=== PATIENT | female | born 1945 | race Caucasian/White ===

== ENCOUNTER 2019-01-13 07:49 | Inpatient (IN) | payer MEDICARE, BC ==
--- NOTE | 2019-01-10 20:54 | HP ---
PREOPERATIVE HISTORY AND PHYSICAL: DATE OF ADMISSION/SURGERY: 01/13/19 ATTENDING SURGEON: Dr. Martha Subramanian.* (DICTATED BY NASREEN TOUSSAINT) PROCEDURE: Right total shoulder reverse, subpectoral biceps tenodesis. CHIEF COMPLAINT: Right shoulder pain. HISTORY OF PRESENT ILLNESS: Tiesha is a 73-year-old female, who presents to the clinic for right shoulder pain due to glenohumeral joint osteoarthritis and rotator cuff arthropathy. She has failed conservative measures and therefore agreed to undergo a right total shoulder reverse, subpectoral biceps tenodesis with Dr. Subramanian on 01/13/19. PAST MEDICAL HISTORY: Hypertension, asthma, high cholesterol, osteoarthritis, thyroid issues, Jtauj-Qhyfnwlnz-Kkppq, superficial blood clots of the right leg. She denies history of DVT or PE. 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 The patient denies prior complications with anesthesia. MEDICATIONS: 1. Protonix 40 mg 1 by mouth every day. 2. Synthroid 137 mcg 1 by mouth daily. 3. Calcium with vitamin D 1 by mouth twice a day. 4. Tylenol 8 Hour 1 by mouth every 6 hours as needed. 5. CoQ10 100 mg 1 by mouth 3 times a week. 6. Crestor 20 mg 1 by mouth every day. 7. Cymbalta 60 mg 1 by mouth every day. 8. Aspirin 81 mg 1 by mouth every day. 9. Meloxicam 7.5 mg 1 by mouth twice daily as needed. 10. Dulera 100/5 mcg per ACT 2 puffs by mouth twice a day. ALLERGIES: No known drug allergies. FAMILY HISTORY: Positive for diabetes, cancer, and RA, and a daughter with a history of DVT from . SOCIAL HISTORY: She lives with her daughter. She is retired. She denies tobacco or alcohol consumption. She is right-hand dominant. REVIEW OF SYSTEMS: A 14-point review of systems was reviewed with the patient. Positive for current complaint, otherwise negative. Denies history of DVT or PE , bleeding disorders, fever or chills. Denies chest pain or shortness of breath. PHYSICAL EXAMINATION GENERAL: A 73-year-old well-developed, well-nourished female, in no acute distress. VITAL SIGNS: Height 63, weight 180, pulse 77, blood pressure 126/74, temperature 98.6, BMI 31.9. HEENT: Normocephalic, atraumatic. PERRLA. Throat clear. NECK: Supple. PULMONARY: Lungs are clear to auscultation bilaterally. No wheezing, rhonchi, or rales. CARDIO: Regular rate and rhythm. S1, S2. No murmurs, gallops, or rubs. No edema. ABDOMEN: Positive bowel sounds. Soft, nontender. NEURO: Alert and oriented x3. Cranial nerves grossly intact. MUSCULOSKELETAL: Right upper extremity: Skin is intact. Forward flexion to 150, abduction to 90, external rotation to 40, internal rotation to the lateral hip. Full range of motion of the elbow, wrist, and hand. A +4/5 strength to rotator cuff testing with pain. A +2 radial pulse. Sensation intact to light touch distally. DIAGNOSTIC STUDIES: Arthrogram and CT revealed extravasation of fluid indicative of a moderate to large sized rotator cuff tear. IMPRESSION: Right shoulder osteoarthritis and rotator cuff tear. PLAN: The patient is scheduled to undergo a right total shoulder reverse, subpectoral biceps tenodesis with Dr. Subramanian on 01/13/19 pending primary care clearance. She will follow up 10 to 14 days postop for followup and suture removal. Percocet will be used for postop pain management. NASREEN TOUSSAINT [id number]/[facility] #: [id number] [facility]
[~2019-01-13 07:49] MED LIST: Buffered Lidocaine 1% SYRIN* 1 ML/SYRINGE INTRADERM ONE; Lactated Ringers 1000 ML Bag* 1,000 ML IV SCH
--- OUTSIDE RECORDS SUMMARY | 2019-01-13 07:53 | XMS REPORT | Continuity of Care Document ---
:1945 External Reference #:[id number] Author Name Merry Olivier Care Team Providers Name Role Phone Kelly Gipson MD Primary Care Physician Unavailable Payers Date Identification Numbers Payment Provider Subscriber Policy Number: [id number] Medicare Tita Rojo PayID: [id number] [address] [place] [address] Policy Number: [id number] [facility] Tita Rojo PayID: [id number] [address] [address] [place] [address] Advance Directives Description No Information Available Problems Date Description Provider Status Onset: 09/29/2018 Localized, primary osteoarthritis of the Martha Subramanian MD Active shoulder region Onset: 09/29/2018 Strain of muscle(s) and tendon(s) of the Martha Subramanian MD Active rotator cuff of right shoulder, subsequent encounter Onset: 11/10/2018 Presence of other cardiac implants and Martha Subramanian MD Active grafts Family History Date Family Member(s) Observation Comments General Diabetes General Cancer General Stroke Social History Type Date Description Comments Sex Unknown Lives With Daughter Occupation Retired Tobacco Use Start: Unknown Never Smoked Cigarettes Smoking Status Reviewed: 01/05/19 Never Smoked Cigarettes ETOH Use Denies alcohol use Tobacco Use Start: Unknown Patient has never smoked Recreational Drug Use Never Used Drugs Exercise Type/Frequency Exercises sporadically active around the house Allergies, Adverse Reactions, Alerts Description No Known Drug Allergies Medications Medication Date Status Form Strength Qnty SIG Indications Ordering Provider Protonix Active Tablets DR 40mg 1 by Unknown 000 mouth every day Synthroid 0 Active Tablets 137mcg 1 by Unknown 000 mouth every day Calcium 600 + Active Tablets 600-200mg-U 1 by Unknown D 000 nit mouth twice a day Tylenol 8 0 Active Tablets ER 650mg one every Unknown Hour 000 6 hours Arthritis as needed Pain for pains Coq10 Active Capsules 100mg take 1 by Unknown 000 mouth 3 x week Crestor 0 Active Tablets 20mg 1 by Unknown 000 mouth every day Cymbalta Active Caps DR 60mg 1 by Unknown 000 Part mouth every day Aspirin Low Active Chewtabs 81mg take 1 Unknown Dose 000 chew tab by mouth every day for heart disease Jocelyne Aspirin Active Tablets 325mg take 1 Unknown 000 tab twice a day x 14 days Meloxicam Active Tablets 7.5mg take one Unknown 000 tab twice daily as needed for pain, avoid other nsaids Dulera Active Aerosol 100-5mcg/Ac inhale Unknown 000 t two puffs by mouth twice a day Medications Administered in Office Medication Date Status Form Strength Qnty SIG Indications Ordering Provider Triamcinolone 09/29/ Administered Injection Zaneb (Kenalog) 2017 MD Marilynn Immunizations Description No Information Available Vital Signs Date Vital Result Comment 01/05/2019 11:44am Height 63 inches 5'3" Weight 180.00 lb Heart Rate 77 /min BP Systolic 126 mmHg BP Diastolic 74 mmHg Body Temperature 98.6 F Pain Level 4 BMI (Body Mass Index) 31.9 kg/m2 11/24/2018 10:05am Height 63 inches 5'3" Weight 184.00 lb BP Systolic 124 mmHg BP Diastolic 72 mmHg Respiratory Rate 20 /min Pain Level 3 BMI (Body Mass Index) 32.6 kg/m2 11/11/2018 10:25am Height 63 inches 5'3" Weight 184.00 lb Heart Rate 76 /min BP Systolic Sitting 120 mmHg Lue reg cuff BP Diastolic Sitting 80 mmHg Lue reg cuff Respiratory Rate 18 /min O2 % BldC Oximetry 96 % BMI (Body Mass Index) 32.6 kg/m2 11/10/2018 9:50am Height 63 inches 5'3" Weight 184.00 lb BP Systolic 116 mmHg BP Diastolic 68 mmHg Respiratory Rate 20 /min Pain Level 3 BMI (Body Mass Index) 32.6 kg/m2 10/07/2018 10:10am Height 63 inches 5'3" Weight 182.00 lb w/o shoes Heart Rate 68 /min reg BP Systolic 152 mmHg LA sitting reg cuff BP Diastolic 84 mmHg LA sitting reg cuff BP Systolic Sitting 142 mmHg Ra reg cuff BP Diastolic Sitting 82 mmHg Ra reg cuff BP Systolic Standing 126 mmHg LA reg cuff BP Diastolic Standing 72 mmHg LA reg cuff Respiratory Rate 17 /min O2 % BldC Oximetry 95 % BMI (Body Mass Index) 32.2 kg/m2 09/29/2018 8:18am Height 63 inches 5'3" Weight 184.00 lb Heart Rate 77 /min Body Temperature 98.0 F Pain Level 5 O2 % BldC Oximetry 97 % BMI (Body Mass Index) 32.6 kg/m2 Results Test Date Facility Test Result H/L Range Note Laboratory test 11/03/2018 [facility] Surgical SEE RESULT [address] Pathology BELOW [place], [place] [id number] [phone] 1 SEE RESULT BELOW Name: TITA ROJO : [address]: Richard Rios MD Acct: [id number] Unit: [id number] AGE: 73 Location: [facility] Re11/03/18 SEX: F Status: REG REF SPEC: [id number] ESTELITA: 11/03/180848 SUBM DR: Richard Rios MD REQ: [id number] RECD: 11/03/18 STATUS: SOUT _ ORDERED: LEVEL 1 FINAL DIAGNOSIS Event monitor, removal: Foreign body (event monitor) (gross diagnosis) PRE-OPERATIVE DIAGNOSIS Presence of other cardiac implants and grafts. GROSS DESCRIPTION The specimen is received fresh with no source identified and a requisition labeled, Event Monitor, and consists of a 4.5 x 0.7 x 0.4 cm [employer] medical billing associate. The following inscription is identified: [employer] LINQ SN [id number] 41. Per established hospital medical staff protocol, no tissue is submitted. Gross only. Signed by and Reported on: Luz Gregorio MD 11/04/18 1052 END OF REPORT DEPARTMENT OF PATHOLOGY, [address] [place] [address] Jim Anderson M.D. Director [facility] # [id number] Procedures Date Code Description Status 11/03/2018 88948 Removal, Subcutaneous Caridac Rhythm Monitor Completed 10/07/2018 24104 EKG Tracing & Interpretation Completed 09/29/2018 31189 Inject/Drain Joint/Bursa Major W/O US Completed Encounters Type Date Location Provider Dx Diagnosis Office Visit 11/24/2018 [facility] Martha Subramanian MD M19.011 Primary 9:45a [facility] osteoarthritis, right shoulder S46.011D Strain of musc/tend the rotator cuff of right shoulder, subs Office Visit 11/11/2018 10:45a [facility] Richard D. Z95.818 Presence of Of Duke Rios M.D. other cardiac implants and grafts Z48.812 Encntr for surgical aftcr following surgery on the circ sys Office Visit 11/10/2018 [facility]opedic Martha Subramanian M19.011 Primary 9:45a Services Of osteoarthritis, C.M.A. right shoulder Z95.818 Presence of other cardiac implants and grafts S46.011D Strain of musc/tend the rotator cuff of right shoulder, subs M25.511 Pain in right shoulder Office Visit 10/07/2018 10:00a [facility] Richard D. Z95.818 Presence of Of Duke Rios M.D. other cardiac implants and grafts R00.2 Palpitations Office Visit 09/29/2018 [facility] Martha Subramanian M19.011 Primary 8:00a Services Of osteoarthritis, C.M.A. right shoulder S46.011D Strain of musc/tend the rotator cuff of right shoulder, subs M75.41 Impingement syndrome of right shoulder Plan of Treatment Future Appointment(s):01/26/2019 9:15 am - Martha Subramanian MD at [facility] ..A.01/13/2019 9:30 am - Theresa Lai PA-C at [facility].01/13/2019 9:30 am - Martha Subramanian MD at [facility].01/05/2019 - Martha Subramanian, MDM19.011 Primary osteoarthritis, right shoulderNew Xrays:CT Extremity Upper Right Wo, Ordered: 01/05/19Follow up: Follow up: 10-14 days post opS46.011D Strain of muscle(s) and tendon(s) of the rotator cuff of rig
--- OUTSIDE RECORDS SUMMARY | 2019-01-13 07:53 | XMS REPORT | Continuity of Care Document ---
:1945 External Reference #:[id number] Author Name Theresa Lai PA-C Address [address], [place] [address] Care Team Providers Name Role Phone Kelly Gipson MD Primary Care Physician Unavailable Payers Date Identification Numbers Payment Provider Subscriber Policy Number: [id number] Medicare Tiesha Espinosa PayID: [id number] [address] [place] [address] Policy Number: [id number] [facility] Tiesha Espinosa PayID: [id number] [address] [address] [place] [address] Advance Directives Description No Information Available Problems [...] Form Strength Qnty SIG Indications Ordering Provider Bactrim DS Active Tablets 800-160mg 6tabs take 1 by Martha Subramanian MD twice daily x 3 [address] Table[address] 40mg 1 by Unknown 000 mouth every day Synthroid 0 Active Tablets 137mcg 1 by Unknown 000 mouth every day Calcium 600 + Active Tablets 600-200mg- 1 by Unknown D 000 Unit mouth twice a day Tylenol 8 Active Tablets ER 650mg one every Unknown Hour 000 6 hours Arthritis as needed Pain for pains Coq10 Active Capsules 100mg take 1 by Unknown 000 mouth 3 x week Crestor Active Tablets 20mg 1 by Unknown 000 [...] pain, avoid other nsaids Dulera Active Aerosol 100-5mcg/A inhale Unknown 000 ct two puffs by mouth twice a day Medications Administered in Office Medication Date Status Form Strength Qnty SIG Indications Ordering Provider Triamcinolone 09/29/ Administered Injection Dylanb (Kenalog) 2017 MD Marilynn Immunizations Description No [...] Date Facility Test Result H/L Range Note CBC Auto Diff 01/05/2019 [facility] White Blood 10.6 10^3/uL N 3.5-10.[address] [place] [address] [phone] Red Blood Count 4.52 10^6/uL N 3.70-4.87 Hemoglobin 13.9 g/dL N 12.0-16.0 Hematocrit 43 % High 33-41 Mean Corpuscular Volume 94 fL N 80-97 Mean Corpuscular Hemoglobin 31 pg N 27-31 Mean Corpuscular HGB Conc 33 g/dL N 31-36 Red Cell Distribution Width 16 % High 10.5-15 Platelet Count 294 10^3/uL N 150-450 Mean Platelet Volume 8.8 fL N 7.4-10.4 Abs Neutrophils 5.4 10^3/uL N 1.5-7.7 Abs Lymphocytes 3.7 10^3/uL N 1.0-4.8 Abs Monocytes 0.9 10^3/uL High 0-0.8 Abs Eosinophils 0.6 10^3/uL N 0-0.6 Abs Basophils 0.1 10^3/uL N 0-0.2 Abs Nucleated RBC 0 10^3/uL Granulocyte % 50.7 % Lymphocyte % 34.7 % Monocyte % 8.7 % Eosinophil % 5.2 % Basophil % 0.7 % Nucleated Red Blood Cells % 0.1 Inr/Protime 01/05/2019 [facility] Inr 0.88 N 0.77-1.02 [place] [address] [phone] Laboratory test 01/05/2019 [facility] Partial 28.2 seconds N 26.0-36.3 finding [address] [facility] [place] [address] PTT [phone] Urinalysis 01/05/2019 [facility] Urine [place] [address] [phone] Urine Appearance Cloudy Urine Specific [place] 1.013 N 1.010-1.030 Urine pH 6.0 N 5-9 Urine Urobilinogen Negative Negative Urine Ketones Negative Negative Urine Protein Negative Negative Urine Leukocytes Trace Abnormal Negative Urine Blood 1+ Abnormal Negative Urine Nitrite Positive Abnormal Negative Urine Bilirubin Negative Negative Urine Glucose Negative Negative Urine White Blood Cell 2+(11-20/hpf) Abnormal Absent Urine Red Blood Cell Trace(0-2/hpf) Absent Urine Bacteria 1+ Abnormal Absent Type & Screen 01/05/2019 [facility] Patient [place] [address] [phone] Antibody Screen NEGATIVE Basic Metabolic Panel 01/05/2019 [facility] Sodium 138 mmol/L N 135-145 [facility] [place] [address] [phone] Potassium 4.2 mmol/L N 3.5-5.0 Chloride 104 mmol/L N 101-111 Co2 Carbon Dioxide 26 mmol/L N 22-32 Anion Gap 8 mmol/L N 2-11 Glucose 94 mg/dL N 70-100 Blood Urea Nitrogen 26 mg/dL High 6-24 Creatinine 0.77 mg/dL N 0.51-0.95 BUN/Creatinine Ratio 33.8 High 8-20 Calcium 9.7 mg/dL N 8.6-10.3 Egfr Non- 73.5 >60 Egfr 88.9 >60 1 Laboratory test 01/05/2019 [facility] Free T4 (Free 1.33 High 0.61-1.12 finding [facility] Thyroxine) ng/[place] [address] [phone] TSH (Thyroid Stim Horm) 0.22 mcIU/mL Low 0.34-5.60 Urine Culture And 01/05/2019 [facility] Urine Culture SEE RESULT [address] [place] [address] [phone] Laboratory test 11/03/2018 [facility] Surgical SEE RESULT [address] [place] [address] [phone] 1 Because ethnic data is not always readily available, this report includes an eGFR for both -Americans and non- Americans. The National Kidney Disease Education Program (NKDEP) does not endorse the use of the MDRD equation for patients that are not between the ages of 18 and 70, are , have extremes of body size, muscle mass, or nutritional status, or are non- or non-. According to the National Kidney Foundation, irrespective of diagnosis, the stage of the disease is based on the level of kidney function: Stage Description GFR(mL/min/1.73 m(2)) 1 Kidney damage with normal or decreased GFR 90 2 Kidney damage with mild decrease in GFR 60-89 3 Moderate decrease in GFR 30-59 4 Severe decrease in GFR 15-29 5 Kidney failure <15 (or dialysis) 2 SEE RESULT BELOW Name: TIESHA ESPINOSA : [address]: Martha Subramanian MD Acct: [id number] Unit: [id number] AGE: 73 Location: [facility] Re01/05/19 SEX: F Status: REG REF SPEC: [id number] ESTELITA: 01/05/[address] [facility] [address]: Martha Subramanian MD REQ: [id number] RECD: 01/05/19 STATUS: MARISSA PRICE DR: Kelly Gipson MD _ SOURCE: URINE SPDESC: ORDERED: Urine Culture QUERIES: Urine Source: Clean Catch Procedure Result Reported Site Urine Culture Final 01/07/19- 0812 ML Organism 1 KLEBSIELLA PNEUMONIAE [place] Count >100,000 (Many) CFU/ML 1. KLEBSIELLA PNEUMONIAE M.I.C. RX --------- ------ Ampicillin R Cefazolin <=4 S Cefepime <=1 S Ceftriaxone <=1 S Ciprofloxacin <=0.25 S Gentamicin <=1 S Levofloxacin <=0.12 S Meropenem <=0.25 S Nitrofurantoin 64 I Tetracycline <=1 S Pipercillin/Tazobactam <=4 S Trimethoprim/Sulfamethoxazole <=20 S Amoxicillin/Clavulanic Acid <=2 S Aztreonam <=1 S Contact the Microbiology Department for any additional antibiotic reporting. * - [facility] . END OF REPORT DEPARTMENT OF PATHOLOGY, [address] [place] [address] Jim Andesron M.D. Director [facility] # [id number] 3 SEE RESULT BELOW Name: TIESHA ESPINOSA : [address]: Richard Rios MD Acct: [id number] Unit: [id number] AGE: 73 Location: [facility] Re11/03/18 SEX: F Status: REG REF SPEC: [id number] ESTELITA: 11/03/[address] [facility] [address]: Richard Rios MD REQ: [id number] RECD: 11/03/18 STATUS: SOUT _ ORDERED: LEVEL 1 FINAL DIAGNOSIS Event monitor, removal: Foreign body (event monitor) (gross diagnosis) PRE-OPERATIVE DIAGNOSIS Presence of other cardiac implants and grafts. GROSS DESCRIPTION The specimen is received fresh with no source identified and a requisition labeled, Event Monitor, and consists of a 4.5 x 0.7 x 0.4 cm [employer] medical pathology teacher. The following inscription is identified: [employer] LINQ SN [id number] 41. Per established hospital medical staff protocol, no tissue is submitted. Gross only. Signed by and Reported on: Luz Gregorio MD 11/04/18 1052 END OF REPORT DEPARTMENT OF PATHOLOGY, [address] [place] [address] Jim Anderson M.D. Director [facility] # [id number] Procedures Date Code Description Status 11/03/2018 68337 Removal, Subcutaneous Caridac Rhythm Monitor Completed 10/07/2018 90124 EKG Tracing & Interpretation Completed 09/29/2018 79823 Inject/Drain Joint/Bursa Major W/O US Completed Encounters Type Date Location Provider Dx Diagnosis Office Visit 11/24/2018 Orthopedic Martha Subramanian MD M19.011 Primary 9:45a [facility] [place] osteoarthritis, right shoulder S46.011D Strain of musc/tend the rotator cuff of right shoulder, subs Office Visit 11/11/2018 10:45a [facility] Richard Bennett Z95.818 Presence of Of Duke Rios M.D. other cardiac implants and grafts Z48.812 Encntr for surgical aftcr following surgery on the circ sys Office Visit 11/10/2018 Jr Subramanian M19.011 Primary 9:45a Services Of MD osteoarthritis, C.M.A. right shoulder Z95.818 Presence of other cardiac implants and grafts S46.011D Strain of musc/tend the rotator cuff of right shoulder, subs M25.511 Pain in right shoulder Office Visit 10/07/2018 10:00a [facility] Richard Bennett Z95.818 Presence of Of [facility] Rios M.D. other cardiac implants and grafts R00.2 Palpitations Office Visit 09/29/2018 Orthopedic Martha Subramanian, M19.011 Primary 8:00a Services Of osteoarthritis, C.M.A. right shoulder S46.011D Strain of musc/tend the rotator cuff of right shoulder, subs M75.41 Impingement syndrome of right shoulder Plan of Treatment Future Appointment(s):01/26/2019 9:15 am - Martha Subramanian MD at [facility].A.01/13/2019 9:30 am - Theresa Lai PA-C at [facility].01/13/2019 9:30 am - Martha Subramanian MD at [facility].01/05/2019 - Martha Subramanian, MDM19.011 Primary osteoarthritis, right shoulderFollow up:Follow up: 10-14 days post opS46.011D Strain of muscle(s) and tendon(s) of the rotator cuff of rig
[2019-01-13] MEDS ORDERED: ceFAZolin 2 GM in NS PREMIX(*) 2 GM/100 ML BAG IVPB ONE (08:25)
[2019-01-13] MEDS ORDERED: Buffered Lidocaine 1% SYRIN* 1 ML/SYRINGE INTRADERM ONE (08:25)
[2019-01-13] MEDS ORDERED: Bupivacaine 0.5% W/EPI SDV* 30 ML VIAL ONE (09:54)
[2019-01-13] MEDS ORDERED: Midazolam* 1 MG/ML 2 ML VIAL (2 MG) ONE (10:10)
[2019-01-13] MEDS ORDERED: fentaNYL* 50 MCG/ML 2 ML VIAL (100 MCG VIAL) ONE ×2 (10:10→10:48)
[2019-01-13] MEDS ORDERED: Ondansetron INJ* 2 MG/ML VIAL ONE (10:56)
[2019-01-13] MEDS ORDERED: Succinylcholine* 20 MG/ML 10 ML VIAL ONE (10:56)
[2019-01-13] MEDS ORDERED: Dexamethasone IV* 4 MG/ML 1 ML (4 MG) ONE (10:56)
[2019-01-13] MEDS ORDERED: Propofol* 10 MG/ML 20 ML BTL ONE ×2 (10:56)
[2019-01-13] MEDS ORDERED: Phenylephrine 10 MG/ML VIAL* 1 ML VIAL ONE (11:18)
[2019-01-13] MEDS ORDERED: EPHEDrine (Pressors)* 50 MG/ML VIAL ONE (11:25)
[2019-01-13] MEDS ORDERED: Naloxone* 0.4 MG/ML 1 ML VIAL IV PRN (12:35)
[2019-01-13] MEDS ORDERED: HYDROmorphone INJ1* 1 MG/ML SYRINGE IV PRN (12:35)
[2019-01-13] MEDS ORDERED: Morphine INJ* 2 MG/ML 1 ML SYRINGE (TWO MG - NEW SYRINGE VERSION) IV PRN (13:35)
[2019-01-13] MEDS ORDERED: Bisacodyl SUPP* 10 MG SUPP PR PRN (13:35)
[2019-01-13] MEDS ORDERED: Temazepam CAP* 15 MG PO PRN (13:35)
[2019-01-13] MEDS ORDERED: Magnesium Hydroxide LIQ* 30 ML UDC PO PRN (13:35)
[2019-01-13] MEDS ORDERED: oxyCODONE TAB* 5 MG TAB PO PRN (13:35)
[2019-01-13] MEDS ORDERED: Ondansetron ODT TAB* 4 MG PO PRN (13:35)
[2019-01-13] MEDS ORDERED: Polyethylene Glycol 3350* 17 GM PACKET PO PRN (13:35)
[2019-01-13] MEDS ORDERED: diPHENhydraMINE PO* 25 MG PO PRN (13:35)
[2019-01-13] MEDS ORDERED: diPHENhydraMINE IV* 50 MG/ML 1 ml VIAL (BENADRYL) IV PRN (13:35)
[2019-01-13] MEDS ORDERED: Cyclobenzaprine TAB* 10 MG PO PRN (13:35)
[2019-01-13] MEDS ORDERED: Ondansetron INJ* 2 MG/ML VIAL IV PRN (13:35)
[2019-01-13] MEDS ORDERED: Albuterol 2.5 MG/3 ML NEB.SOL* (0.083%) INH PRN (13:43)
[2019-01-13] MEDS ORDERED: Albuterol HFA INHALER* 8 gm MDI INH PRN (13:43)
[2019-01-13] MEDS: Lactated Ringers 1000 ML Bag* 1,000 ML IV SCH (15:17)
[2019-01-13] MEDS: Acetaminophen TAB* 325 MG PO SCH ×2 (16:00→22:27)
[2019-01-13] MEDS: Mometasone/Formoter 100/5 MDI INH SCH (20:17)
[2019-01-13] MEDS: ceFAZolin 1 GM ADVAN(*) 1 GM in NS 0.9% 50 ML* 50 ML IVPB SCH (20:26)
[2019-01-13] MEDS: Atorvastatin* 40 MG TAB PO SCH (20:47)
[2019-01-13] MEDS: Docusate CAP* 100 MG PO SCH (20:47)
[2019-01-13] MEDS: DULoxetine DR CAP* 60 MG CAP.DR PO SCH (20:48)
[2019-01-13] MEDS: GLYCOPYRROLATE INH SCH (20:49)
--- NOTE | 2019-01-13 20:54 | PN ---
Progress Note - Progress Note Date of Service: 01/13/19 SOAP: Subjective: Pt seen at around 4 pm. Lying in bed comfortably. Daughter at bedside. Block still working. No complaints Objective: Temp Pulse Resp BP Pulse Ox 98.6 F 83 16 120/68 95 01/13/19 19:50 01/13/19 20:21 01/13/19 20:48 01/13/19 19:50 01/13/19 20:21 NAD. Dressing and sling in place. densely neuropathic. extremity warm and well perfused. brisk cap refill. Xrays acceptable A/P POD#0 from right reverse arthroplasty drain d/c tomorrow [place] until tomorrow when she can begin work on straight catheterization post op abx analgesia NWB. passive ROM only potential d/c tomorrow
[2019-01-13] MEDS: oxyCODONE/Acetamin 5/325 MG* TAB PO PRN (22:27)
[2019-01-14] MEDS: Lactated Ringers 1000 ML Bag* 1,000 ML IV SCH (01:29)
[2019-01-14] MEDS: oxyCODONE/Acetamin 5/325 MG* TAB PO PRN ×4 (03:32→21:42)
[2019-01-14] MEDS: ceFAZolin 1 GM ADVAN(*) 1 GM in NS 0.9% 50 ML* 50 ML IVPB SCH ×2 (03:34→11:04)
[2019-01-14] MEDS: Levothyroxine TAB* 137 MCG TAB PO SCH (05:27)
--- NOTE | 2019-01-14 05:34 | OP ---
CC: PCP* OPERATIVE REPORT: DATE OF OPERATION: 01/13/19 - Inpatient, room SSU 341-02 DATE OF : 45 SURGEON: Martha Subramanian MD ASSISTANTS: NASREEN Pérez, and Raissa Tang. Assistants were needed for the entirety of the case to help with positioning, retraction, and were utilized throughout all portions of the case. ANESTHESIOLOGIST: Dr. Fox. ANESTHESIA: General interscalene block. PRE-OP DIAGNOSIS: Right shoulder rotator cuff arthropathy. POST-OP DIAGNOSIS: Right shoulder rotator cuff arthropathy. OPERATIVE PROCEDURE: Right shoulder reverse shoulder arthroplasty and open biceps tenodesis. COMPLICATIONS: None. ESTIMATED BLOOD LOSS: About 150 cc. OUTPUT: Drain x1. IMPLANTS: Tornier Ascend Flex size 5B stem with a centered tray and a +6 poly with a size 36 glenosphere Aequalis Reversed II, glenosphere size 36 mm with a 25 x 35 baseplate. INDICATIONS: Tiesha Espinosa is a 73-year-old female who has rotator cuff arthropathy. She has had shoulder pains for a year. She had the sharp, catchy pain. She also is diagnosed with calcific tendonitis. She has a full- thickness tear of the rotator cuff. We discussed the risks and benefits of surgery versus nonoperative treatment. We talked arthroscopic repair as well as reverse shoulder arthroplasty. After extensive discussion of the risks and benefits of surgical treatment, she elected to proceed with reverse arthroplasty. She underwent preoperative medical risk optimization. The risks and benefits were discussed at length including, but not limited to bleeding, infection, damage to nerves, vessels, surrounding structures, wound nonhealing, persistent pain, need for surgery, scarring, stiffness, incomplete relief of symptoms, risks of anesthesia, fracture, dislocation. She has elected to proceed. DESCRIPTION OF PROCEDURE: The patient was greeted in the preoperative area by the attending surgeon. The correct extremity was marked and consent was confirmed. She underwent interscalene nerve block by the anesthesiologist, after which she was brought back to the operating suite. She was placed in the supine position on the operating table. She then underwent general anesthesia with endotracheal intubation, after which she was placed initially in a lazy beach-chair position with a bump under her scapula. The right shoulder was then prepped and draped in usual sterile fashion beginning with chlorhexidine soap, scrub, and alcohol wipe and a final prep with ChloraPrep. After appropriate surgical pause indicating site, side, procedure, and administration of antibiotics, a deltopectoral incision was made with a #15 blade. Soft tissues were carefully dissected to expose the cephalic vein and deltopectoral interval. The cephalic vein and the deltoid were taken laterally. There was abundant scar tissue about the anterior aspect of the shoulder. This was identified from once the coracoid was identified, the clavipectoral fascia was released. The pec was very tight as well and this was proximal 1.5 cm released and the biceps was then tenodesed with a heavy nonabsorbable suture, tenotomized proximal to that. This was tracked into the joint where the subscap was identified, the subscap was then released in a subscap peel fashion. There was a full-thickness tear of supra and infraspinatus tendon with retraction. The subscap was gently released with the shoulder externally rotated. Hemostasis was obtained at all times, although the patient was more oozy than average. Once the subscap was released, the head was gently dislocated. The head and neck juncture was identified and exposed. There were grade 2 and 3 changes to the humeral head. A provisional neck cut was then made using a sagittal saw. The bone quality was quite poor. The canal finder was then used to find the canal as well as the sizing guide, then broaching began. Size 5 was found to be appropriate fit. The extension plate was placed and attention was directed to the glenoid. The posterior retractor was placed around the glenoid. There was significant synovitis in the joint. The anterior, posterior, superior labrum was then debrided back. It was then debrided inferiorly with attention on the soft tissues and care to stay close to the bone and inferior labrum was released as well. Any excess cartilage was removed using the Graham. At this point, the glenosphere was quite small. The gleno guide was then placed inferiorly along the shoulder and the guidewire was placed in the inferior center aspect of the glenoid. Once the appropriate position was identified, the 25 baseplate reamer was then used to ream the cartilage and the bone. Again, the bone quality was fairly soft. The size 36 mm footprint reamer was then hand reamed for glenosphere placement. An 8 mm cannulated drill was then drilled and a 6.5 mm drilled that was found to be around 30 mm. Decision was made to proceed with 35. The drill hole was then packed and the final implant was placed with excellent purchase. Two interlocking screws were placed, the remaining position to the screw placement were very short, no screws were placed. The glenosphere was then placed, brought to the field and then impacted into position and secured with a pec screw. Attention was then directed to the head. The head was brought back through the wound. The stem was checked to make sure it was stable. At this point, the centered reverse tray and a +6 poly was placed. The shoulder was able to be reduced and taken through range of motion, found the forward flexion to about 130 degrees, abduction to 90, external rotation to about 50 degrees. The final implants were chosen. These were then prepared on the back table by the attending surgeon. Intraosseous tunnels were placed in the humerus for later subscap repair. The final implant was then brought to the field and then impacted into position and then reduced. The shoulder was taken through range of motion and found to be symmetric. The wounds were then copiously irrigated with sterile saline. The subscap was closed in a horizontal mattress configuration. Wounds were irrigated again and intraarticular drain was placed, then the wounds were irrigated again. The deltopectoral interval was closed with #2 Ethibond sutures. The wounds were irrigated one last time and the skin was closed in layers with 3-0 Monocryl for subcu as well as running Monocryl. Sterile dressings were applied. Cryo/Cuff and UltraSling were applied. She was awoken from anesthesia and transferred to the PACU in stable condition. POSTOPERATIVE PLAN: She will be nonweightbearing. She will be in a sling for 6 weeks. She will be admitted overnight for observation. She will receive 24 hours of postoperative antibiotics. She will be on pain control. DVT prophylaxis was considered, but deferred due to her previous personal and family history, but I will place her on Lovenox while inhouse. She will likely be discharged on postop day #1 with the drain discontinued. [id number]/[facility] #: [id number] [facility]ENTEROpal
[2019-01-14 07:02] LABS: Hematocrit 35 % (33-41); Hemoglobin 11.3 g/dL (12.0-16.0); Mean Platelet Volume 8.9 fL (7.4-10.4); Platelet Count 219 10^3/uL (150-450)
[2019-01-14 07:20] LABS: BUN/Creatinine Ratio 24.6 (8-20); Calcium 8.8 mg/dL (8.6-10.3); EGFR African American 116.3 (>60); EGFR Non-African American 96.1 (>60); Potassium 4.4 mmol/L (3.5-5.0)
[2019-01-14] MEDS: Losartan TAB* 25 MG PO SCH (09:23)
[2019-01-14] MEDS: GLYCOPYRROLATE INH SCH ×2 (09:23→21:45)
[2019-01-14] MEDS: Mometasone/Formoter 100/5 MDI INH SCH ×2 (09:24→20:46)
[2019-01-14] MEDS: Acetaminophen TAB* 325 MG PO SCH ×3 (09:25→21:45)
[2019-01-14] MEDS: Docusate CAP* 100 MG PO SCH ×2 (09:25→21:41)
[2019-01-14] MEDS: traMADol TAB* 50 MG PO PRN ×2 (09:30→15:14)
[2019-01-14] MEDS: Pantoprazole TAB * 40 MG TAB PO SCH (09:31)
[2019-01-14] MEDS ORDERED: Enoxaparin(*) 40 MG/0.4 ML SYR SUBCUT SCH (12:00)
[2019-01-14] MEDS ORDERED: Magnesium Hydroxide LIQ* 30 ML UDC PO PRN (12:31)
[2019-01-14] MEDS ORDERED: Senna TAB PO PRN (12:31)
[2019-01-14] MEDS ORDERED: Polyethylene Glycol 3350* 17 GM PACKET PO PRN (12:31)
--- NOTE | 2019-01-14 13:34 | PN ---
Progress Note - Progress Note Date of Service: 01/14/19 SOAP: Subjective: []Pt seen at bedside. Her pain is well controlled at this time. Denies CP, SOB, dizziness, nausea. She denies any confusion. Reports when sleeping her O2 sat had fallen to 89% on room air which improved with deep breathing. Objective: [General: Well appearing, NAD. Patient is drowsy but alert and oriented x 3 with appropriate conversation. RUE: Sling in place. Dressing CDI. Drain removed with tip intact. Flexion and extension of wrist and digits intact, thumbs up and okay intact. Sensation intact to light touch distally, cap refill less than two seconds distally. Assessment: POD 1 sp right reverse arthroplasty Plan: NWB RUE, OK PROM only no FF or abd past 90 no Er past 25. Ok AROM elbow wrist and hand work on straight catheterization with non-dominant hand Analgesia changed from percocet and oxy to tramadol and tylenol. percocet order left in place for severe pain if not controlled with tramadol and tylenol. Watch for and hold narcotics for sedation 1 L O2 when sleeping, work with incentive spirometer Plan for DC tomorrow Vital Signs Temp 99.3 F 01/14/19 12:33 Pulse 79 01/14/19 12:33 Resp 18 01/14/19 12:33 BP 123/60 01/14/19 12:33 Pulse Ox 93 01/14/19 12:33 Intake & Output 01/13/19 01/14/19 01/14/19 18:59 06:59 18:59 Intake Total 3280 1995 1036 Output Total 575 1670 100 Balance 2705 325 936 Weight 179 lb 12.8 oz Intake: IV Fluids 2800 1035 676 ABX - CEFAZOLIN 55 110 LR 2800 980 566 Oral 480 960 360 Output: Hemovac Amount #1 170 Killian 375 1500 100 Estimated Blood Loss 200 Other: # Bowel Movements 0 Laboratory Last Values Hgb 11.3 g/dL (12.0-16.0) L 01/14/19 05:55 Hct 35 % (33-41) 01/14/19 05:55 Plt Count 219 10^3/uL (150-450) 01/14/19 05:55 MPV 8.9 fL (7.4-10.4) 01/14/19 05:55 Sodium 139 mmol/L (135-145) 01/14/19 05:55 Potassium 4.4 mmol/L (3.5-5.0) 01/14/19 05:55 Chloride 102 mmol/L (101-111) 01/14/19 05:55 Carbon Dioxide 29 mmol/L (22-32) 01/14/19 05:55 Anion Gap 8 mmol/L (2-11) 01/14/19 05:55 BUN 15 mg/dL (6-24) 01/14/19 05:55 Creatinine 0.61 mg/dL (0.51-0.95) 01/14/19 05:55 Est GFR ( Amer) 116.3 (>60) 01/14/19 05:55 Est GFR (Non-Af Amer) 96.1 (>60) 01/14/19 05:55 BUN/Creatinine Ratio 24.6 (8-20) H 01/14/19 05:55 Glucose 142 mg/dL (70-100) H 01/14/19 05:55 Calcium 8.8 mg/dL (8.6-10.3) 01/14/19 05:55
[2019-01-14] MEDS: DULoxetine DR CAP* 60 MG CAP.DR PO SCH (21:41)
[2019-01-14] MEDS: Atorvastatin* 40 MG TAB PO SCH (21:41)
[2019-01-14] MEDS: Magnesium Hydroxide LIQ* 30 ML UDC PO SCH (21:41)
[2019-01-15] MEDS: oxyCODONE/Acetamin 5/325 MG* TAB PO PRN ×2 (01:59→09:39)
[2019-01-15] MEDS: Levothyroxine TAB* 137 MCG TAB PO SCH (05:46)
--- NOTE | 2019-01-15 06:31 | PN ---
Progress Note - Progress Note Date of Service: 01/15/19 SOAP: Subjective: OOB to chair with no complaints of pain; denies SOB/Chest pain Objective: Vital Signs Temp Pulse Resp BP Pulse Ox 98.8 F 90 16 143/69 95 01/15/19 01:53 01/15/19 01:53 01/15/19 01:59 01/15/19 01:53 01/15/19 01:53 incision: c/d/i PE: able to demonstrate A-OK, thumbs up and cross finger sign, intact sensation , 2+ DP pulse Assessment: s/p right reverse shoulder arthroplasty; POD#2 Plan: 1) home today 2) Lovenox for DVT prophylaxis 3) PROM OK; no FF or abd > 90, no ER > 25 4) NWB RUE
[2019-01-15] MEDS: Acetaminophen TAB* 325 MG PO SCH (07:16)
[2019-01-15 08:03] LABS: Hematocrit 36 % (33-41); Hemoglobin 11.7 g/dL (12.0-16.0); Mean Platelet Volume 8.4 fL (7.4-10.4); Platelet Count 216 10^3/uL (150-450)
[2019-01-15] MEDS: Docusate CAP* 100 MG PO SCH (09:39)
[2019-01-15] MEDS: Pantoprazole TAB * 40 MG TAB PO SCH (09:39)
[2019-01-15] MEDS: Magnesium Hydroxide LIQ* 30 ML UDC PO SCH (09:39)
[2019-01-15] MEDS: Losartan TAB* 25 MG PO SCH (09:39)
[2019-01-15] MEDS: GLYCOPYRROLATE INH SCH (09:40)
[2019-01-15 09:58] VITALS: BP 139/65
--- NOTE | 2019-01-15 10:13 | DS ---
DISCHARGE SUMMARY: DATE OF ADMISSION: 01/13/19 DATE OF DISCHARGE: 01/15/19 SURGEON: Martha Subramanian MD* (dictated by NASREEN Ga). PRINCIPAL DIAGNOSIS: Right shoulder osteoarthritis. DISCHARGE DIAGNOSIS: Right shoulder osteoarthritis. HISTORY OF PRESENT ILLNESS: Ms. Espinosa is a 73-year-old female with continued complaints of right shoulder pain. She had failed conservative treatment and elected to proceed with a right shoulder reverse arthroplasty. HOSPITAL COURSE: Ms. Espinosa was admitted electively to the hospital on and underwent a right shoulder reverse arthroplasty and open biceps tenodesis. Postoperatively, she was placed on Lovenox for DVT prophylaxis. Her hospital course was unremarkable. At the time of discharge, she was afebrile and her vital signs were stable. DISCHARGE MEDICATIONS: She was discharged home with: 1. Percocet 5/325 one tab every 4 hours as needed for pain. 2. Colace 100 mg tabs 2 to 3 daily for constipation. 3. Ventolin HFA inhaler. 4. Lipitor 40 mg a day. 5. Cymbalta 60 mg a day. 6. Levothyroxine 137 mcg daily. 7. Cozaar 25 mg a day. 8. Dulera twice a day. 9. Protonix 40 mg a day. 10. Restoril 15 mg q.h.s. PHYSICAL EXAM UPON DISCHARGE: She was afebrile. Her vital sings were stable. The wound was clean and dry. She was able to demonstrate thumbs-up, , and cross- finger sign. She had a 2+ palpable pulse and intact sensation. She had full range of motion of the right elbow, wrist, and hand. DISCHARGE DISPOSITION: Discharged home in stable condition. DISCHARGE INSTRUCTIONS: She will be discharged home. She was given a prescription for Percocet for pain and Colace for constipation. She can start taking a shower tomorrow. She cannot submerge the area in water. She can let soap and water run over it and pat dry. Use the ice machine as needed. Passive range of motion of the right shoulder is okay, but no abduction or forward flexion greater than 90 degrees. No external rotation greater than 25 degrees. She will remain nonweightbearing of the right upper extremity, and she will see Dr. Subramanian back in 10 to 14 days in clinic. [place] [id number]/[facility] #: [id number] [facility]ITAL[facility]
== END 2019-01-15 11:10 | disposition home or self-care (01) | DRG 483 ==
LOC: AA 07:49 → SSU 13:31
PROVIDERS: ADMIT Orthopaedic Surgery; ATTEND Orthopaedic Surgery
PROC: 0RRJ00Z Replacement of Right Shoulder Joint with Reverse Ball and Socket Synthetic Substitute, Open Approach (ICD-10-PCS; principal; 2019-01-13 11:15)
DX: M19.011 Primary osteoarthritis, right shoulder (principal); I10 Essential (primary) hypertension; J45.909 Unspecified asthma, uncomplicated; E78.00 Pure hypercholesterolemia, unspecified; M75.101 Unspecified rotator cuff tear or rupture of right shoulder, not specified as traumatic; E03.9 Hypothyroidism, unspecified; E78.5 Hyperlipidemia, unspecified; K21.9 Gastro-esophageal reflux disease without esophagitis; I45.6 Pre-excitation syndrome; Z90.710 Acquired absence of both cervix and uterus; Z83.3 Family history of diabetes mellitus; Z80.9 Family history of malignant neoplasm, unspecified; Z79.01 Long term (current) use of anticoagulants; Z82.61 Family history of arthritis; Z95.818 Presence of other cardiac implants and grafts
CPT/HCPCS: 36415; 80048; 85014; 85018; 85049; 94640; A9270-GY; C1713; C1776; G8978-GP-CI; G8978-GP-CK; G8979-GP-CI; G8980-GP-CI; G8987-GO-CL; G8988-GO-CJ; J0330; J0690; J1100; J1650; J2250; J2405; J2704; J3010

== ENCOUNTER → 2019-08-16 09:37 | Day surgery (SDC) | payer MEDICARE, BC ==
[~2019-08-16 09:37] MED LIST changes: +Acetaminophen TAB* 325 MG PO PRN; +Bupivacaine 0.25% SDV PF* 10 ML VIAL INJ ONE; +Midazolam* 1 MG/ML 2 ML VIAL (2 MG) ONE; +Naloxone* 0.4 MG/ML 1 ML VIAL IV PRN; +Propofol* 10 MG/ML 20 ML BTL ONE; +ceFAZolin 2 GM in NS PREMIX(*) 2 GM/100 ML BAG IVPB ONE; +fentaNYL* 50 MCG/ML 2 ML VIAL (100 MCG VIAL) ONE; +oxyCODONE/Acetamin 5/325 MG* TAB PO PRN
[2019-08-16 14:48] VITALS: BP 145/80
--- NOTE | 2019-08-17 00:02 | OP ---
DATE OF OPERATION: 08/16/19 - [facility] DATE OF : 45. SURGEON: Angus Wolf MD. RIBBON INKER: NASREEN Rodas ANESTHESIOLOGIST: Dr. Fox. ANESTHESIA: Local MAC. PRE-OP DIAGNOSES: 1. Right severe carpal tunnel syndrome. 2. 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 3. Right trigger thumb. POST-OP DIAGNOSES: 1. Right severe carpal tunnel syndrome. 2. 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 3. Right trigger thumb. OPERATIVE PROCEDURE: 1. Right open carpal tunnel release. 2. Release of right median nerve in the proximal forearm. 3. Right trigger thumb release. INDICATIONS: Ms. Espinosa developed pretty significant median nerve symptoms after prior shoulder surgery, especially clinically signs consistent with irritation of the median nerve down by the wrist. Additionally, I think that she has got a bit of a trigger thumb and that is limiting her FPL pull through. I talked to her about her treatment options, risks and benefits. She wanted to proceed with the aforementioned surgery. ESTIMATED BLOOD LOSS: 2 mL. COMPLICATIONS: None. FINDINGS: See above and below. DESCRIPTION OF PROCEDURE: Ms. Espinosa was seen in the preoperative holding area. The correct site, side, and procedures were identified. We came back to the operating room, the arm was prepped and draped in the usual fashion, and a time-out was performed. I made a longitudinal incision in the proximal palm, which was brought across the wrist and on the ulnar aspect in Slime type fashion. Dissection was carried down through the subcutaneous tissue and palmar fascia. Transverse carpal ligament was released just off the radial aspect of the hook of the hamate. The release was completed distally and proximally with the tenotomy scissors. At this point, everything was looking very good. The wound was nicely decompressed. I then made a 2 cm transverse incision in the proximal forearm over the lacertus fibrosis. Dissection was carried down and full thickness flaps were raised off of the lacertus. I went ahead and released the lacertus fibrosis with the tenotomy scissors. I released some of the fascia proximally and distally until there was nothing compressing the median nerve in that area. I then made a 1 cm transverse incision in the MP joint flexion crease. Full thickness flaps were bluntly raised off the tendon sheath. The A1 josie was released longitudinally. The release was completed distally and proximally with tenotomy scissors. Once there was no compression on the tendon, I irrigated out the wound. All wounds were then closed with 4-0 nylon suture, 0.25% Marcaine had been infiltrated in the beginning of the surgery around all the operative sites. Soft dressings were applied and she was taken to recovery room in stable condition. [id number]/[facility] #: [id number] KALANI
== END | disposition home or self-care (01) ==
LOC: OR 09:37
PROVIDERS: ATTEND Orthopaedic Surgery Hand Surgery
DX: G56.01 Carpal tunnel syndrome, right upper limb (principal); G56.11 Other lesions of median nerve, right upper limb; M65.311 Trigger thumb, right thumb; I45.6 Pre-excitation syndrome; I10 Essential (primary) hypertension; E78.5 Hyperlipidemia, unspecified; K21.9 Gastro-esophageal reflux disease without esophagitis; E03.9 Hypothyroidism, unspecified; M19.90 Unspecified osteoarthritis, unspecified site; F32.9 Major depressive disorder, single episode, unspecified
CPT/HCPCS: J0690; J2250; J2704; J3010; J3490

== ENCOUNTER 2019-09-11 23:37 | Inpatient (IN) | payer MEDICARE, BC ==
--- OUTSIDE RECORDS SUMMARY | 2019-09-12 00:01 | XMS REPORT | Continuity of Care Document ---
:1945 External Reference #:[id number] Author Name Angus Wolf MD (transmitted by agent of provider Samira Carrillo) Address [address] [place] [address] Care Team Providers Name Role Phone Kelly Gipson MD - Internal Medicine Care Team Information Eligibility Counselor Problems Active Problems Provider Date Localized, primary osteoarthritis of the Martha Subramanian MD Onset: 09/29/2018 shoulder region Strain of muscle(s) and tendon(s) of the rotator Martha Subramanian MD Onset: 08/2018 cuff of right shoulder, subsequent encounter Presence of other cardiac implants and grafts Martha Subramanian MD Onset: 2018 Carpal tunnel syndrome of right wrist Martha Subramanian MD Onset: 06/17/2019 Lesion of median nerve Angus Wolf MD Onset: 06/30/2019 Social History Type Date Description Comments Sex Unknown Tobacco Use Start: Unknown Never Smoked Cigarettes Smoking Status Reviewed: 07/28/19 Never Smoked Cigarettes ETOH Use Denies alcohol use Tobacco Use Start: Unknown Patient has never smoked Recreational Drug Use Never Used Drugs Exercise Type/Frequency Exercises sporadically active around the house Allergies, Adverse Reactions, Alerts Description No Known Drug Allergies Medications Active Medications SIG Qnty Indications Ordering Provider Date Protonix 1 by mouth every Unknown 40mg Tablets DR day Synthroid 1 by mouth every Unknown 112mcg Tablets day Calcium 600 + D 1 by mouth twice Unknown a day [id number] Tablets Tylenol 8 Hour one every 6 hours Unknown Arthritis Pain as needed for 650mg pains Tablets ER Coq10 take 1 by mouth 3 Unknown 100mg Capsules x week Crestor 1 by mouth every Unknown 20mg Tablets day Cymbalta 1 by mouth every Unknown 60mg Caps DR day Part Aspirin Low Dose take 1 chew tab Unknown 81mg by mouth every Chewtabs day for heart disease Jocelyne Aspirin take 1 tab twice Unknown 325mg a day x 14 days Tablets Meloxicam take one tab Unknown 7.5mg Tablets twice daily as needed for pain, avoid other nsaids Dulera inhale two puffs Unknown 100-5mcg/Act by mouth twice a Aerosol day Medications Administered in Office Medication SIG Qnty Indications Ordering Provider Date Triamcinolone (Kenalog) Martha Subramanian MD 09/29/2018 Injection Immunizations Description No Information Available Vital Signs Date Vital Result Comment 07/28/2019 8:07am Height 63 inches 5'3" Weight 179.00 lb Heart Rate 80 /min BP Systolic 116 mmHg BP Diastolic 68 mmHg Body Temperature 97.9 F Pain Level 1 BMI (Body Mass Index) 31.7 kg/m2 07/20/2019 1:20pm Height 63 inches 5'3" Weight 179.00 lb with shoes Heart Rate 70 /min BP Systolic Sitting 114 mmHg BP Diastolic Sitting 60 mmHg BP Systolic Standing 112 mmHg BP Diastolic Standing 80 mmHg BMI (Body Mass Index) 31.7 kg/m2 Ejection Fraction NONE Results Test Date Facility Test Result H/L Range Note Order 07/27/2019 [facility] Echocardiogram <pending > [facility] [place] [address] [phone] Procedures Date Code Description Status 07/27/2019 13164 ECHO Transthoracic, Real-Time 2D With Doppler And Color Completed Flow 07/20/2019 35409 EKG Tracing & Interpretation Completed Medical Devices Description No Information Available Encounters Type Date Location Provider Dx Diagnosis Office Visit 07/20/2019 [facility] Betsey De La Vega, I35.0 Nonrheumatic aortic 2:00p Of [employer] OB/GYN DOCTOR (valve) stenosis I10 Essential (primary) hypertension E78.5 Hyperlipidemia, unspecified Z01.810 Encounter for preprocedural cardiovascular examination Office Visit 06/30/2019 9:00a [facility] Agnus G56.01 Carpal tunnel at Kaylin Wolf MD syndrome, right upper limb G56.11 Other lesions of median nerve, right upper limb Office Visit 06/29/2019 11:00a [facility] Martha Subramanian G56.01 Carpal tunnel at [place] MD syndrome, right upper limb Z96.611 Presence of right artificial shoulder joint Office Visit 06/17/2019 Kell Thomas M19.011 Primary 9:30a Orthopedics at [facility] osteoarthritis, [place] right shoulder G56.01 Carpal tunnel syndrome, right upper limb Z47.1 Aftercare following joint replacement surgery Z96.611 Presence of right artificial shoulder joint R20.0 Anesthesia of skin Assessments Date Code Description Provider 07/28/2019 G56.01 Carpal tunnel syndrome, right upper limb Angus Wolf MD 07/28/2019 G56.11 Other lesions of median nerve, right upper Angus Wolf MD limb 07/27/2019 I35.0 Nonrheumatic aortic (valve) stenosis Traveling ECHO 1 07/20/2019 I35.0 Nonrheumatic aortic (valve) stenosis Richard Rios M.D. 07/20/2019 I35.0 Nonrheumatic aortic (valve) stenosis Betsey De La Vega NP 07/20/2019 I10 Essential (primary) hypertension Betsey De La Vega NP 07/20/2019 E78.5 Hyperlipidemia, unspecified Betsey De La Vega NP 07/20/2019 Z01.810 Encounter for preprocedural cardiovascular Betsey De La Vega NP examination 06/30/2019 G56.01 Carpal tunnel syndrome, right upper limb Angus Wolf MD 06/30/2019 G56.11 Other lesions of median nerve, right upper Angus Wolf MD limb 06/29/2019 G56.01 Carpal tunnel syndrome, right upper limb Martha Subramanian MD 06/29/2019 Z96.611 Presence of right artificial shoulder Martha Subramanian MD joint 06/17/2019 M19.011 Primary osteoarthritis, right shoulder Martha Subramanian MD 06/17/2019 G56.01 Carpal tunnel syndrome, right upper limb Martha Subramanian MD 06/17/2019 Z47.1 Aftercare following joint replacement Martha Subramanian MD surgery 06/17/2019 Z96.611 Presence of right artificial shoulder Martha Subramanian MD joint 06/17/2019 R20.0 Anesthesia of skin Martha Subramanian MD 03/02/2019 M19.011 Primary osteoarthritis, right shoulder Martha Subramanian MD 03/02/2019 Z47.1 Aftercare following joint replacement Martha Subramanian MD surgery 03/02/2019 Z96.611 Presence of right artificial shoulder Martha Subramanian MD joint 02/09/2019 M19.011 Primary osteoarthritis, right shoulder Martha Subramanian MD 02/09/2019 S46.011D Strain of muscle(s) and tendon(s) of the Martha Subramanian MD rotator cuff of rig 02/09/2019 Z96.611 Presence of right artificial shoulder Martha Subramanian MD joint 02/09/2019 Z47.1 Aftercare following joint replacement Martha Subramanian MD surgery Plan of Treatment Future Appointment(s):08/31/2019 8:45 am - Angus Wolf MD at [facility] at Sjlprf0008/16/2019 8:15 am - Angus Wolf MD at [facility] at Ofzcqu7807/28/2019 - Angus Wolf MDG56.01 Carpal tunnel syndrome, right upper limbFollow up:Follow up: 10-14 days dnlikmB75.11 Other lesions of median nerve, right upper limb Functional Status Description No Information Available Mental Status Description No Information Available Referrals Description No Information Available
--- OUTSIDE RECORDS SUMMARY | 2019-09-12 00:01 | XMS REPORT | Continuity of Care Document ---
:1945 External Reference #:[id number] Author Name Betsey De La Vega NP (transmitted by agent of provider Yael Avila) Address [address] [place] [address] Care Team Providers Name Role Phone Kelly Gipson MD - Internal Medicine Care Team Information Insurance Appraiser Problems Active Problems Provider Date Localized, primary [...] Unknown Never Smoked Cigarettes Smoking Status Reviewed: 07/20/19 Never Smoked Cigarettes ETOH Use Denies alcohol use Tobacco Use Start: Unknown Patient has never smoked Recreational Drug Use Never Used Drugs Exercise Type/Frequency Exercises sporadically active around the house Allergies, Adverse Reactions, Alerts Description No Known Drug Allergies Medications Active Medications SIG Qnty Indications Ordering Provider Date Colace 1 tab by mouth 90caps Martha Subramanian MD 01/15/2019 100mg Capsules 2-3 times a day as needed Protonix 1 by mouth every Unknown 40mg Tablets day DR Synthroid 1 by mouth every Unknown 112mcg day Tablets Calcium 600 + D 1 by mouth twice Unknown a day [id number] Tablets Tylenol 8 Hour one every 6 [...] Available Vital Signs Date Vital Result Comment 07/20/2019 1:20pm Height 63 inches 5'3" Weight 179.00 lb with shoes Heart Rate 70 /min BP Systolic Sitting 114 mmHg BP Diastolic Sitting 60 mmHg BP Systolic Standing 112 mmHg BP Diastolic Standing 80 mmHg BMI (Body Mass Index) 31.7 kg/m2 Ejection Fraction NONE 06/30/2019 9:21am Height 63 inches 5'3" Weight 180.00 lb Heart Rate 75 /min BP Systolic 112 mmHg BP Diastolic 62 mmHg Respiratory Rate 16 /min Body Temperature 98.0 F Pain Level 3 BMI (Body Mass Index) 31.9 kg/m2 Results Description No Information Available Procedures Date Code Description Status 07/20/2019 31028 EKG Tracing & Interpretation Completed Medical Devices Description No Information Available Encounters Type Date Location Provider Dx Diagnosis Office Visit 06/30/2019 [facility] Angus Wolf G56.01 Carpal tunnel 9:00a at [place] LIM syndrome, right upper limb G56.11 Other lesions of median nerve, right upper limb Office Visit 06/29/2019 11:00a [facility] Martha Subramanian G56.01 Carpal tunnel at [place] LIM syndrome, right upper limb Z96.611 Presence of right artificial shoulder joint Office Visit 06/17/2019 [facility] M19.011 Primary 9:30a [facility] nile Subramanian MD osteoarthritis, [place] right shoulder G56.01 Carpal tunnel syndrome, right upper limb Z47.1 Aftercare following joint replacement surgery Z96.611 Presence of right artificial shoulder joint R20.0 Anesthesia of skin Assessments Date Code Description Provider 07/20/2019 I35.0 Nonrheumatic aortic (valve) stenosis Betsey [...] 06/29/2019 Z96.611 Presence of right artificial shoulder joint Martha Subramanian MD 06/17/2019 M19.011 Primary osteoarthritis, right shoulder Martha Subramanian MD 06/17/2019 G56.01 Carpal tunnel syndrome, right upper limb Martha Subramanian MD 06/17/2019 Z47.1 Aftercare following joint replacement surgery Martha Subramanian MD 06/17/2019 Z96.611 Presence of right artificial shoulder yolanda Subramanian MD 06/17/2019 R20.0 Anesthesia of skin Martha Subramanian MD 03/02/2019 M19.011 Primary osteoarthritis, right shoulder Martha Subramanian MD 03/02/2019 Z47.1 Aftercare following joint replacement surgery Martha Subramanian MD 03/02/2019 Z96.611 Presence of right artificial shoulder yolanda Subramanian MD 02/09/2019 M19.011 Primary osteoarthritis, right shoulder Martha Subramanian MD 02/09/2019 S46.011D Strain of muscle(s) and tendon(s) of the Martha Subramanian MD rotator cuff of rig 02/09/2019 Z96.611 Presence of right artificial shoulder joint Martha Subramanian MD 02/09/2019 Z47.1 Aftercare following joint replacement surgery Martha Subramanian MD 01/26/2019 M19.011 Primary osteoarthritis, right shoulder Martha Subramanian MD 01/26/2019 S46.011D Strain of muscle(s) and tendon(s) of the Martha Subramanian MD rotator cuff of rig 01/26/2019 Z47.1 Aftercare following joint replacement surgery Martha Subramanian MD 01/26/2019 Z96.611 Presence of right artificial shoulder joint Martha Subramanian MD Plan of Treatment Future Appointment(s):07/27/2019 8:00 am - Traveling ECHO 1 at [facility]07/28/2019 8:00 am - Angus Wolf MD at [facility] at Ykiqhq8308/16/2019 8:15 am - Angus Wolf MD at [facility] at Xvekoi0507/20/2019 - Betsey De La Vega, NPI35.0 Nonrheumatic aortic (valve) stenosisNew Orders:Echocardiogram, Scheduled: 07/27/19I10 Essential (primary) hypertensionFollow up:follow up in 12 months or as needed with Dr. Rios.E78.5 Hyperlipidemia, hsdpcaibfahO90.810 Encounter for preprocedural cardiovascular examinationRecommendations:You may proceed with your procedure on 08/16/[address] Wolf. Functional Status Description No Information Available Mental Status Description No Information Available Referrals Description No Information Available
--- OUTSIDE RECORDS SUMMARY | 2019-09-12 00:01 | XMS REPORT | Continuity of Care Document ---
:1945 External Reference #:[id number] Author Name Angus Wolf MD (transmitted by agent of provider Gracy Boss) Address [address] [place] [address] Care Team Providers Name Role Phone Kelly Gipson MD - Internal Medicine Care Team Information [facility] [phone] Problems Active Problems Provider Date Localized, primary [...] median nerve Angus Wolf MD Onset: 06/30/2019 Localized, primary osteoarthritis of the hand Angus Wolf MD Onset: 08/31 Carpal tunnel syndrome of left wrist Angus Wolf MD Onset: 08/31/2019 Snapping thumb syndrome Angus Wolf MD Onset: 08/16/2019 Social History Type Date Description Comments Sex Unknown Tobacco Use Start: Unknown Never Smoked Cigarettes Smoking Status Reviewed: 08/31/19 Never Smoked Cigarettes ETOH Use Denies alcohol use Tobacco Use Start: Unknown Patient has never smoked Recreational Drug Use Never Used Drugs Exercise Type/Frequency Exercises sporadically active around the house Allergies, Adverse Reactions, Alerts Description No Known Drug Allergies Medications Active Medications SIG Qnty Indications Ordering Provider Date Tramadol HCL 1-2 tablets by 30tabs Angus Wolf, 08/16/2019 50mg mouth every 6 MD Tablets hours as needed pain Protonix 1 by mouth every Unknown 40mg Tablets day Synthroid 1 by mouth every Unknown 112mcg day Tablets Calcium 600 + D 1 by mouth twice Unknown a day [id number] Tablets Tylenol 8 Hour one every 6 [...] Available Vital Signs Date Vital Result Comment 08/31/2019 9:03am Height 63 inches 5'3" Weight 175.00 lb Heart Rate 88 /min BP Systolic 134 mmHg BP Diastolic 80 mmHg Respiratory Rate 16 /min Body Temperature 98.4 F Pain Level 0 BMI (Body Mass Index) 31.0 kg/m2 07/28/2019 8:07am Height 63 inches 5'3" Weight 179.00 lb Heart Rate 80 /min BP Systolic 116 mmHg BP Diastolic 68 mmHg Body Temperature 97.9 F Pain Level 1 BMI (Body Mass Index) 31.7 kg/m2 Results Description No Information Available Procedures Date Code Description Status 08/16/2019 52310 Carpal Tunnel Release Completed 08/16/2019 80677 Neuroplasty, Major Peripheral Nerve Arm Or Leg Completed 08/16/2019 32611 Neuroplasty, Major Peripheral Nerve Arm Or Leg Completed 08/16/2019 18691 Trigger Finger Release Incision / Tendon Sheath Incision Completed 07/27/2019 49961 ECHO Transthoracic, Real-Time 2D With Doppler And Color Completed Flow 07/27/2019 00300 ECHO Transthoracic, Real-Time 2D With Doppler And Color Completed Flow 07/20/2019 14484 EKG Tracing & Interpretation Completed Medical Devices Description No Information Available Encounters Type Date Location Provider Dx Diagnosis Office Visit 07/20/2019 [facility] Betsey Thuman, I35.0 Nonrheumatic aortic 2:00p Of [employer] (valve) stenosis I10 Essential (primary) hypertension E78.5 Hyperlipidemia, unspecified Z01.810 Encounter for preprocedural cardiovascular examination Office Visit 06/30/2019 9:00a [facility] Angus G56.01 Carpal tunnel at [place] Wolf MD syndrome, right upper limb G56.11 Other lesions of median nerve, right upper limb Office Visit 06/29/2019 11:00a [facility] Martha Subramanian G56.01 Carpal tunnel at [place] syndrome, right upper limb Z96.611 Presence of right artificial shoulder joint Office [facility]2019 [facility] M19.011 Primary 9:30a Orthoped[facility] at [facility] osteoarthritis, [place] right shoulder G56.01 Carpal tunnel syndrome, right upper limb Z47.1 Aftercare following joint replacement surgery Z96.611 Presence of right artificial shoulder joint R20.0 Anesthesia of skin Assessments Date Code Description Provider 08/31/2019 G56.02 Carpal tunnel syndrome, left upper limb Angus Wolf MD 08/31/2019 M18.12 Unilateral primary osteoarthritis of first Angus Wolf MD carpometacarpal joint, left hand 08/31/2019 M19.042 Primary osteoarthritis, left hand Angus Wolf MD 08/16/2019 G56.01 Carpal tunnel syndrome, right upper limb Jose Ernesto, PA 08/16/2019 G56.01 Carpal tunnel syndrome, right upper limb Angus Wolf MD 08/16/2019 G56.11 Other lesions of median nerve, right upper Jose [place], PA limb 08/16/2019 G56.11 Other lesions of median nerve, right upper Angus Wolf MD limb 08/16/2019 M65.311 Trigger thumb, right thumb Jose Ipson, PA 08/16/2019 M65.311 Trigger thumb, right thumb Angus Wolf MD 07/28/2019 G56.01 Carpal tunnel syndrome, right upper limb Angus Wolf MD 07/28/2019 G56.11 Other lesions of median nerve, right upper Angus Wolf MD limb 07/27/2019 I35.0 Nonrheumatic aortic (valve) stenosis Richard Rios M.D. 07/27/2019 I35.0 Nonrheumatic aortic (valve) stenosis Traveling [...] 03/02/2019 Z96.611 Presence of right artificial shoulder joint Martha Subramanian MD Plan of Treatment 08/31/2019 - Angus Wolf MDG56.02 Carpal tunnel syndrome, left upper limbFollow up:Follow up: 7-10 days before lrhlrcgG46.12 Unilateral primary osteoarthritis of first carpometacarpal joint, left handM19.042 Primary osteoarthritis, left hand Functional Status Description No Information Available Mental Status Description No Information Available Referrals Description No Information Available
--- OUTSIDE RECORDS SUMMARY | 2019-09-12 00:01 | XMS REPORT | Continuity of Care Document ---
:1945 External Reference #:[id number] Author Name Loni Turner M.D. Address [address] [place] [address] Care Team Providers Name Role Phone Kelly Gipson MD Care Team Information [employer] [phone] Loni Turner D.K., M.D. - Allergy Care Team Information [employer] & Immunology Problems Active Problems Provider Date Severe persistent asthma Loni Turner M.D. Onset: 09/01/2019 Cough Loni Turner M.D. Onset: 03/18/2018 Chronic rhinitis Loni Turner M.D. Onset: 03/18/2018 Uncomplicated moderate persistent asthma Loni Turner M.D. Onset: 2017 Immunodeficiency disorder Loni Turner M.D. Onset: 03/18/2018 Social History Type Date Description Comments Sex Unknown ETOH Use Never used alcohol Tobacco Use Start: Unknown Patient has never smoked Recreational Drug Use Never Used Drugs Allergies, Adverse Reactions, Alerts Description No Known Drug Allergies Medications Active Medications SIG Qnty Indications Ordering Date Provider Incruse Ellipta 1 inhalation daily 30units Fang Calhoun, 06/29/2019 [employer]-C 62.5mcg/Inh Aerosol Bactroban Nasal apply to nose 2x 10gm Loni Turner, 09/23/2018 2% daily Jorge Ointment Anoro Ellipta 1 puff once a day Unknown 62.5-25mcg/Inh Aerosol Asmanex HFA 2 puffs by mouth Unknown twice daily 200mcg/Act Aerosol Dulera Take 2 Inhalations 39units Loni Turner, 200-5mcg/Act In The Am And PM M.D. Aerosol Azelastine HCL one spray each Unknown (Nasal) nostril in the 0.1% morning and at Solution night Flonase Allergy 1 spray each Unknown Relief nostril everyday 50mcg/Act Suspension Ventolin HFA 2 every 4 hours as Unknown needed 108(90Base) mcg/Act Aerosol Nebulizer to be used with Unknown Device albuterol for asthma Aspir-81 daily Unknown 81mg Tablets Crestor once daily at Unknown 20mg bedtime Tablets Cymbalta daily Unknown 60mg Caps Part Coq-10 daily Unknown 150mg Capsules Tylenol 8 Hour as needed Unknown Arthritis Pain 650mg Tablets ER Calcium 600 daily Unknown 600mg Tablets Synthroid one tab daily Unknown 100mcg Tablets Protonix 1 by mouth in the Unknown 40mg in the morning Tablets Medications Administered in Office Medication SIG Qnty Indications Ordering Provider Date Celestone/Cortisone [id number] 1 Loni Turner M.D. 03/18/2018 cc Injection Immunizations CPT Code Status Date Vaccine Lot # 28270 Given Unknown Pneumococcal Vaccine 72958 Given Unknown Influenza Vaccine 71691 Given Unknown Influenza Vaccine Vital Signs Date Vital Result Comment 09/01/2019 11:38am Height 63 inches 5'3" Weight 180.00 lb Weight 81.648 kg Respiratory Rate 20 /min Heart Rate 72 /min O2 % BldC Oximetry 95 % BP Systolic 125 mmHg BP Diastolic 75 mmHg Asthma Control Test 19 Fractional Exhaled Nitric Oxide 51 BMI (Body Mass Index) 31.9 kg/m2 02/26/2019 9:10am Height 63 inches 5'3" Weight 176.00 lb Weight 79.834 kg Respiratory Rate 16 /min Heart Rate 74 /min O2 % BldC Oximetry 84 % BP Systolic 137 mmHg BP Diastolic 84 mmHg Asthma Control Test 20 Fractional Exhaled Nitric Oxide 93 BMI (Body Mass Index) 31.2 kg/m2 Results Description No Information Available Procedures Date Code Description Status 09/01/2019 17482 Nitric Oxide Gas Determination Completed 09/01/2019 97845 Pre PFT Completed Medical Devices Description No Information Available Encounters Description No Information Available Assessments Date Code Description Provider 09/01/2019 R05 Cough Loni Turner M.D. 09/01/2019 J31.0 Chronic rhinitis Loni Turner M.D. 09/01/2019 J45.51 Severe persistent asthma Loni Turner M.D. Plan of Treatment Future Appointment(s):11/10/2019 8:40 am - Loni Turner M.D. at [id number] - Loni Turner M.D.R05 HskogR48.0 Chronic ctdqkeprK60.51 Severe persistent asthmaFollow up:2 months or per patient preference CHECK-UP/FOLLOW UP VISIT: Continued management of patient's medical care. eNORecommendations: Refrain from wearing perfumes/scented colognes while visiting our office. Griselda still elevated at 51 ppb, which shows that you have persistent eosinophilic inflammation Pre-PFT looks ok despite your cough You have indicated again that the Incruse has not helped. You have used Spiriva and it has not helped We will try to get Seebri covered or we may have to switch to Anoro and Arnuity as you cannot take Anoro and Dulera together Start Asmanex 200 mcg 2 puffs twice daily Start Anoro 1 puff once daily Continue the ventolin as needed - 2 puffs every 4-6 hours Use the holding chamber with the ventolin to make sure you don't cough it out I think this cough is related to your asthma We have to keep working to get your asthma under control We may consider Nucala or Dupixent given that we have been unable to get you asthma under better control Functional Status Description No Information Available Mental Status Description No Information Available Referrals Description No Information Available
[2019-09-12] MEDS ORDERED: Ketorolac INJ* 30 MG/ML 1 ML VIAL IV PUSH ONE (01:28)
[2019-09-12] MEDS ORDERED: Ondansetron INJ* 2 MG/ML VIAL IV ONE (01:28)
[2019-09-12] MEDS ORDERED: NS 0.9% 1000 ML** 1,000 ML IV ONE (01:29)
--- NOTE | 2019-09-12 01:34 | ED ---
Abdominal Pain/Female - HPI Summary HPI Summary: This patient is a 74 year old F presenting to [facility] accompanied by daughter with a chief complaint of vomiting and abdominal pain since 48 hours ago. Patient reports dry mouth, and normal urination. Patient denies diarrhea, and fever. 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 Her last BM was today. She has no allergies. - History of Current Complaint Chief Complaint: EDAbdPain Stated Complaint: VOMITING/ABD PAIN PER DAUGHTER Time Seen by Provider: 09/12/19 00:53 Hx Obtained From: Patient Onset/Duration: Gradual Onset, Lasting Days, Still Present Timing: Constant Severity Initially: Moderate Severity Currently: Moderate Pain Intensity: 5 Pain Scale Used: 0-10 Numeric Location: Diffuse Aggravating Factor(s): Nothing Alleviating Factor(s): Nothing Associated Signs and Symptoms: Positive: Vomiting. Negative: Fever, Urinary Symptoms, Diarrhea Allergies/Adverse Reactions: Allergies Allergy/AdvReac Type Severity Reaction Status Date / Time adhesive tape Allergy Intermediate Blisters Verified 08/16/19 11:36 Home Medications: Home Medications Pantoprazole TAB * [Protonix TAB*] 40 mg PO DAILY 09/12/19 [History Confirmed ] Rosuvastatin Calcium 1 tab PO DAILY 09/12/19 [History Confirmed 09/12/19] Tramadol HCl 1 - 2 tab PO Q6H PRN 09/12/19 [History Confirmed 09/12/19] PMH/Surg Hx/FS Hx/Imm Hx Endocrine/Hematology History: Reports: Hx Thyroid Disease - TOTAL THYROIDECTOMY - TX LEVOTHYROXINE Denies: Hx Bone Marrow Disease, Hx Diabetes, Hx Sickle Cell Disease, Hx Anemia Cardiovascular History: Reports: Hx Coronary Artery Disease - HLD- [place] CRESTOR, Hx Hypertension, Other Cardiovascular Problems/Disorders - high cholesterol Denies: Hx Angina, Hx Cardiomegaly, Hx Congestive Heart Failure, Hx Pacemaker /ICD, Hx Peripheral Vascular Disease, Hx Rheumatic Fever, Hx Valvular Heart Disease Respiratory History: Reports: 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 Denies: Hx Asthma, Hx Chronic Obstructive Pulmonary Disease (COPD), Hx Pulmonary Edema, Hx Pulmonary Embolism, Hx Sleep Apnea GI History: Reports: Hx Gastroesophageal Reflux Disease - TX PANTOPRAZOLE Denies: Hx Cirrhosis, Hx Crohn's Disease, Hx Hiatal Hernia, Hx Irritable Bowel, Hx Jaundice, Hx Ulcer, Other GI Disorders History: Reports: Other Problems/Disorders - has 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 Abdominal hernia surg x4. Thyroidectomy. RIGHT SHOULDER REPLACEMENT 12/2018. HYSTERECTOMY Hx Anesthesia Reactions: No - Immunization History Date of Tetanus Vaccine: utd Date of Influenza Vaccine: fall 2018 Infectious Disease History: No Infectious Disease History: Denies: Hx Hepatitis, Traveled Outside the [place] in Last 30 Days - Family History Known Family History: Positive: Hypertension, Other - Stroke, CA - Social History Alcohol Use: None Hx Substance Use: No Substance Use Type: Reports: None Hx Tobacco Use: No Smoking Status (MU): Never Smoked Tobacco - Additional Comments History Additional Comments: Home Medications Medication Instructions Recorded Confirmed Type Levothyroxine TAB* [Synthroid 25 100 mcg PO 0800 05/22/18 09/12/19 History MCG TAB*] Losartan TAB* [Cozaar TAB*] 50 mg PO QAM 05/22/18 09/12/19 History Rosuvastatin Calcium [Crestor] 20 mg PO 1300 05/22/18 09/12/19 History Acetaminophen [Tylenol 8 Hour] 650 mg PO BID 11/03/18 09/12/19 History Aspirin [Aspir-Low] 81 mg PO QAM 11/03/18 09/12/19 History Calcium Carbonate/Vitamin D3 600 each PO QAM 11/03/18 09/12/19 History [Calcium 600 + Vit D Tablet] DULoxetine DR CAP* [Cymbalta CAP*] 60 mg PO 199911/03/18 09/12/19 History Mometasone/Formoter 100/5 MDI* 2 puff INH BID 11/03/18 09/12/19 History [Dulera 100/5 MDI*] Ubidecarenone [Coq-10] 100 mg PO 199911/03/18 09/12/19 History Albuterol 2.5MG/3ML (0.083%)* 2.5 mg INH Q6H PRN 01/05/19 09/12/19 History [Ventolin 2.5 MG/3 ML NEB.NATTY*] Albuterol HFA INHALER* [Ventolin 1 - 2 puff INH Q4H PRN 01/05/19 09/12/19 History HFA Inhaler*] Aspirin 325 mg PO QAM 01/05/19 09/12/19 History Hydrochlorothiazide TAB* 12.5 mg PO QAM 08/09/19 09/12/19 History [Hydrodiuril TAB*] Umeclidinium [place] [Incruse 62.5 mcg IN BID 08/16/19 09/12/19 History Ellipta] Pantoprazole TAB * [Protonix TAB*] 40 mg PO DAILY 09/12/19 09/12/19 History Rosuvastatin Calcium 1 tab PO DAILY 09/12/19 09/12/19 History Tramadol HCl 1 - 2 tab PO Q6H PRN 09/12/19 09/12/19 History Review of Systems Negative: Fever Positive: Other - dry mouth Positive: Abdominal Pain, Vomiting. Negative: Diarrhea Positive: no symptoms reported All Other Systems Reviewed And Are Negative: Yes Physical Exam - Summary Physical Exam Summary: General: Elderly female with mild discomfort, mildly ill-appearing HEENT: Normocephalic, Atraumatic. Eyes: Conjuctiva normal, PERRL. Ears: TMs within normal limits. Nares: (-) discharge, (-) erythema. Oropharynx: Clear, mucous membranes moist, (-) exudates. Neck: Soft, FROM, (-) lymphadenopathy, (-) thyromegaly, (-) JVD. Cardiovascular: Normal sinus rhythm, (-) murmur. Lungs: Clear to auscultation bilaterally (-) wheezes, (-) rales, (-) rhonchi. Abdomen: Soft, Moderate left, lateral and lower abdominal tenderness to palpation, non-distended, (-) organomegaly, normal bowel sounds. Back: (-) CVA tenderness Extremities: No edema. Skin: Warm, dry, (-) rash. Neuro: Alert and oriented x3, no focal deficits. Psychiatric: Mood normal, affect normal. Triage Information Reviewed: Yes Vital Signs On Initial Exam: Initial Vitals Temp Pulse Resp BP Pulse Ox 98.3 F 92 20 155/95 99 09/11/19 23:40 09/11/19 23:40 09/11/19 23:40 09/11/19 23:40 09/11/19 23:40 Vital Signs Reviewed: Yes Procedures - Sedation Patient Received Moderate/Deep Sedation with Procedure: No Diagnostics - Vital Signs Vital Signs Temp Pulse Resp BP Pulse Ox 09/12/19 00:11 84 97 09/12/19 00:10 83 161/83 98 09/11/19 23:40 98.3 F 92 20 155/95 99 - Laboratory Result Diagrams: 09/12/19 01:02 09/12/19 01:02 Lab Statement: Any lab studies that have been ordered have been reviewed, and results considered in the medical decision making process. - CT Abdomen/Pelvis CT CT Interpretation Completed By: Radiologist Summary of CT Findings: Abdomen/Pelvis CT reveals, per radiologist IMPRESSION: 1. Small bowel obstruction located in the left flank region. The transition appears to be in the upper pelvis in the midline. The distal small bowel is collapsed. No bowel wall thickening or pneumatosis. No abdominal mass. Moderate amount of feces and air located in the cecum, ascending and transverse colon. No abnormal bowel wall thickening of the colon. 2. The patient has had a resection of the body and tail of the pancreas with an associated lymph node dissection. No apparent recurrence of the tumor. 3. Patient has had surgery to the left ureter in which the distal ureteral reconstruction which is implanted in the dome of the bladder. The right ureter is difficult to follow. Bilateral extrarenal pelvis with mild distention of both pyelocalyceal system. ED physician has reviewed this radiology report. Re-Evaluation - Re-Evaluation First Eval Comment: Dicussed plan to admit pt. Abdominal Pain Fem Course/Dx - Course Course Of Treatment: 74 year old F, brought in by daughter after 2 days of vomiting. Complains of LLQ abd pain. Pt is Afebrile, with slightly elevated WBC , moderately tender on exam. Urine positive for UTI, pt given Ciprro, IV fluids , torradol. CT demonstrates SBO and NGT placed with good returned. Pt referred to surgery for admission. - Diagnoses Provider Diagnoses: Small bowel obstruction - Provider Notifications Discussed Care Of Patient With: Kathryn Fry Time Discussed With Above Provider: 04:28 Instructed by Provider To: Other - Discussed case with Dr. Huynh who accepts pt for admission. Discharge ED - Sign-Out/Discharge Documenting (check all that apply): Patient Departure - Admit - Discharge Plan Condition: Stable Disposition: ADMITTED TO [facility] Referrals: Kelly Gipson MD [Primary Care Provider] - - Billing Disposition and Condition Condition: STABLE Disposition: Admitted to [facility] - Attestation Statements Document Initiated by Scribe: Yes Documenting Scribe: Arlette Orlando Provider For Whom Idalmis is Documenting (Include Credential): Dr. Zita Craig MD Scribe Attestation: Arlette Burnett, scribed for Dr. Zita Craig MD on 09/12/19 at 0631. Scribe Documentation Reviewed: Yes Provider Attestation: The documentation as recorded by the scribe, Arlette Orlando accurately reflects the service I personally performed and the decisions made by me, Dr. Zita Craig MD Status of Scribe Document: Viewed
[2019-09-12 01:40] LABS: Urine Appearance Turbid; Urine Bilirubin Negative (Negative); Urine Blood 2+ (Negative); Urine Color Amber; Urine Glucose Negative (Negative); Urine Ketones Trace (Negative); Urine Nitrite Negative (Negative); Urine Protein 1+(30 mg/dL) (Negative); Urine Specific Gravity 1.021 (1.010-1.030); Urine Urobilinogen Negative (Negative)
[2019-09-12 01:41] LABS: ABS Lymphocytes 1.7 10^3/ul (1.0-4.8); ABS Monocytes 1.1 10^3/ul (0-0.8); ABS Neutrophils 8.9 10^3/ul (1.5-7.7); Eosinophil % 0.2 %; Hematocrit 42 % (35-47); Hemoglobin 13.8 g/dL (12.0-16.0); Lymphocyte % 14.4 %; Mean Corpuscular HGB Conc 33 g/dL (31-36); Mean Corpuscular Hemoglobin 29 pg (27-31); Mean Corpuscular Volume 87 fL (80-97); Mean Platelet Volume 8.6 fL (7.4-10.4); Platelet Count 333 10^3/uL (150-450); Red Blood Count 4.78 10^6 /uL (3.70-4.87); Red Cell Distribution Width 17 % (10-15); White Blood Count 11.7 10^3/uL (3.5-10.8)
[2019-09-12 01:45] LABS: Urine Bacteria 3+ (Absent); Urine Red Blood Cell 1+(3-5/hpf) (Absent); Urine Squamous Epithelial Cell Present (Absent); Urine White Blood Cell 3+(>20/hpf) (Absent)
[2019-09-12 01:51] LABS: Albumin 4.4 g/dL (3.2-5.2); Anion Gap 12 mmol/L (2-11); CO2 Carbon Dioxide 24 mmol/L (22-32); Calcium 10.4 mg/dL (8.6-10.3); Chloride 101 mmol/L (101-111); Potassium 3.5 mmol/L (3.5-5.0); Sodium 137 mmol/L (135-145)
[2019-09-12 01:57] LABS: ALT 10 U/L (7-52); AST 11 U/L (13-39); Albumin/Globulin Ratio 1.5 (1-3); Alkaline Phosphatase 73 U/L (34-104); BUN/Creatinine Ratio 44.9 (8-20); Blood Urea Nitrogen 40 mg/dL (6-24); C Reactive Protein 6.45 mg/L (<8.01); Glucose 166 mg/dL (70-100); Total Protein 7.4 g/dL (6.4-8.9)
[2019-09-12] MEDS ORDERED: Iohexol 300* (CONTRAST) 10 ML SDV IV ONE (02:28)
[2019-09-12] MEDS ORDERED: Ciprofloxacin 400MG IVPREMIX(* 400 MG/200 ML BAG IVPB ONE (03:47)
[2019-09-12] MEDS ORDERED: Ondansetron INJ* 2 MG/ML VIAL IV PRN (05:59)
[2019-09-12] MEDS ORDERED: Heparin VIAL(*) 5000 UNITS/ML VIAL (FIVE THOUSAND) SUBCUT SCH (06:00)
[2019-09-12] MEDS: Lactated Ringers 1000 ML Bag* 1,000 ML IV SCH ×2 (06:50→16:27)
[2019-09-12] MEDS: KCL 20 MEQ/100 ML IVPREMIX* 20 MEQ/100 ML BAG IV SCH ×2 (06:50→10:51)
--- NOTE | 2019-09-12 08:43 | HP ---
H&P (Free Text) History and Physical: REASON FOR ADMISSION: SBO DATE OF ADMISSION 09/12/19 HPI: Mrs Espinosa is a 74F with a history of hypertension, hyperlipidemia, GERD, and multiple abdominal surgeries who presents to the ED with 3 day history of nausea, vomiting, and abdominal pain. The abdominal pain is on the left side and epigastrium. She was in [place] visiting family when she developed those symptoms. She has been tried eating and drinking but cannot keep anything down. Emesis has become more bilious during the past day. The patient had similar symptoms when she had a strangulated incisional hernia. She has had cold sweats , no fevers or chills. She has not passed flatus in at least a couple of days but she has had a bowel movements yesterday which appeared normal. She returned to [facility] and presented to the ED. She recently underwent open splenectomy and distal pancreatectomy in December 2018 in [place]. The patient reports the surgery was for a "blocked valve" to her spleen, but on review of limited clinic notes in the EMR, she reportedly had a pancreatic mass. 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 She was managed with ureteral stents which failed. She then underwent left ileal conduit and wrapping of the right ureter with omental flap via open incision. She also has an InterStim for urinary retention. She subsequently developed an incisional hernia which has been repaired 4 times. The last repair was due to strangulated hernia. In the ED, UA showed possible UTI, and she received 1 dose of ciprofloxacin. However, the patient denies dysuria or hematuria. NG tube was placed in the ED. PAST MEDICAL HISTORY: HTN Hyperlipidemia History of thyroid cancer s/p thyroidectomy GERD PAST SURGICAL HISTORY: Splenectomy and partial pancreatectomy Multiple incisional hernia repairs Thyroidectomy L ileal conduit (see HPI) Colonoscopy 2009, normal per patient. Home Medications Medication Instructions Recorded Confirmed Type Levothyroxine TAB* [Synthroid 25 100 mcg PO 0800 05/22/18 09/12/19 History MCG TAB*] Losartan TAB* [Cozaar TAB*] 50 mg PO QAM 05/22/18 09/12/19 History Rosuvastatin Calcium [Crestor] 20 mg PO 1300 05/22/18 09/12/19 History Acetaminophen [Tylenol 8 Hour] 650 mg PO BID 11/03/18 09/12/19 History Aspirin [Aspir-Low] 81 mg PO QAM 11/03/18 09/12/19 History Calcium Carbonate/Vitamin D3 600 each PO QAM 11/03/18 09/12/19 History [Calcium 600 + Vit D Tablet] DULoxetine DR CAP* [Cymbalta CAP*] 60 mg PO 199911/03/18 09/12/19 History Mometasone/Formoter 100/5 MDI* 2 puff INH BID 11/03/18 09/12/19 History [Dulera 100/5 MDI*] Ubidecarenone [Coq-10] 100 mg PO 199911/03/18 09/12/19 History Albuterol 2.5MG/3ML (0.083%)* 2.5 mg INH Q6H PRN 01/05/19 09/12/19 History [Ventolin 2.5 MG/3 ML NEB.NATTY*] Albuterol HFA INHALER* [Ventolin 1 - 2 puff INH Q4H PRN 01/05/19 09/12/19 History HFA Inhaler*] Aspirin 325 mg PO QAM 01/05/19 09/12/19 History Hydrochlorothiazide TAB* 12.5 mg PO QAM 08/09/19 09/12/19 History [Hydrodiuril TAB*] Umeclidinium [place] [Incruse 62.5 mcg IN BID 08/16/19 09/12/19 History Ellipta] Pantoprazole TAB * [Protonix TAB*] 40 mg PO DAILY 09/12/19 09/12/19 History Rosuvastatin Calcium 1 tab PO DAILY 09/12/19 09/12/19 History Tramadol HCl 1 - 2 tab PO Q6H PRN 09/12/19 09/12/19 History Allergies adhesive tape Allergy (Intermediate, Verified 08/16/19 11:36) Blisters PT UNSURE OF TYPE OF TAPE. DENIES LATEX ALLERGY NKDA FAMILY HISTORY: Her father after multiple strokes. Her mother lived into her 90s and from UTI; she was otherwise healthy. SOCIAL HISTORY: The patient lives with her daughter. Her more than 10 years ago. She denies smoking, alcohol use, or recreational drug abuse. ROS: 14-point review of systems was obtained and pertinent positives and negatives are in HPI. PHYSICAL EXAM: Temp Pulse Resp BP Pulse Ox 97.4 F 83 14 135/75 97 09/12/19 07:45 09/12/19 07:45 09/12/19 08:37 09/12/19 07:45 09/12/19 07:45 General: No acute distress but appears ill. Head: Normocephalic, atraumatic Eyes: EOMI, no scleral icterus Nose: NG tube in R nare, draining bile Mouth: Mucous membranes dry Neck: Trachea midline CV: Regular rate and rhythm Chest: Clear to auscultation bilaterally Abdomen: Soft, nondistended, tenderness to palpation in epigastrium. No rebound or guarding. Extremities: Warm, well-perfused. No pedal edema. Skin: Intact, no lesions. Neuro: Alert, oriented x3 Laboratory Results - last 24 hr 09/11/19 09/12/19 09/12/19 23:48 01:02 01:02 WBC 11.7 H RBC 4.78 Hgb 13.8 Hct 42 MCV 87 MCH 29 MCHC 33 RDW 17 H Plt Count 333 MPV 8.6 Neut % (Auto) 76.3 Lymph % (Auto) 14.4 [place] % (Auto) 9.0 Eos % (Auto) 0.2 Baso % (Auto) 0.1 Absolute Neuts (auto) 8.9 H Absolute Lymphs (auto) 1.7 Absolute Monos (auto) 1.1 H Absolute Eos (auto) 0.0 Absolute Basos (auto) 0.0 Absolute Nucleated RBC 0.0 Nucleated RBC % 0.0 INR (Anticoag Therapy) Sodium 137 Potassium 3.5 Chloride 101 Carbon Dioxide 24 Anion Gap 12 H BUN 40 H Creatinine 0.89 Est GFR ( Amer) 75.0 Est GFR (Non-Af Amer) 62.0 BUN/Creatinine Ratio 44.9 H Glucose 166 H Lactic Acid Calcium 10.4 H Total Bilirubin 0.70 AST 11 L ALT 10 Alkaline Phosphatase 73 C-Reactive Protein 6.45 Total Protein 7.4 Albumin 4.4 Globulin 3.0 Albumin/Globulin Ratio 1.5 Lipase < 10 L Urine Color [place] Urine Appearance Turbid Urine pH 5.0 Ur Specific [place] 1.021 Urine Protein 1+(30 mg/dl) A Urine Ketones Trace A Urine Blood 2+ A Urine Nitrate Negative Urine Bilirubin Negative Urine Urobilinogen Negative Ur Leukocyte Esterase Trace A Urine WBC (Auto) 3+(>20/hpf) A Urine RBC (Auto) 1+(3-5/hpf) A Ur Squamous Epith Cells Present A Urine Bacteria 3+ A Urine Glucose Negative 09/12/19 09/12/19 01:02 01:02 WBC RBC Hgb Hct MCV MCH MCHC RDW Plt Count MPV Neut % (Auto) Lymph % (Auto) [place] % (Auto) Eos % (Auto) Baso % (Auto) Absolute Neuts (auto) Absolute Lymphs (auto) Absolute Monos (auto) Absolute Eos (auto) Absolute Basos (auto) Absolute Nucleated RBC Nucleated RBC % INR (Anticoag Therapy) 1.00 Sodium Potassium Chloride Carbon Dioxide Anion Gap BUN Creatinine Est GFR ( Amer) Est GFR (Non-Af Amer) BUN/Creatinine Ratio Glucose Lactic Acid 1.1 Calcium Total Bilirubin AST ALT Alkaline Phosphatase C-Reactive Protein Total Protein Albumin Globulin Albumin/Globulin Ratio Lipase Urine Color Urine Appearance Urine pH Ur Specific [place] Urine Protein Urine Ketones Urine Blood Urine Nitrate Urine Bilirubin Urine Urobilinogen Ur Leukocyte Esterase Urine WBC (Auto) Urine RBC (Auto) Ur Squamous Epith Cells Urine Bacteria Urine Glucose Diagnostics Summary of CT Findings [ Abdomen/Pelvis CT reveals, per radiologist Abdomen/Pelvis CT] IMPRESSION: 1. Small bowel obstruction located in the left flank region. The transition appears to be in the upper pelvis in the midline. The distal small bowel is collapsed. No bowel wall thickening or pneumatosis. No abdominal mass. Moderate amount of feces and air located in the cecum, ascending and transverse colon. No abnormal bowel wall thickening of the colon. 2. The patient has had a resection of the body and tail of the pancreas with an associated lymph node dissection. No apparent recurrence of the tumor. 3. Patient has had surgery to the left ureter in which the distal ureteral reconstruction which is implanted in the dome of the bladder. The right ureter is difficult to follow. Bilateral extrarenal pelvis with mild distention of both pyelocalyceal system. ED physician has reviewed this radiology report. ASSESSMENT AND PLAN: 74F with history of multiple abdominal surgeries presenting with SBO. No evidence of peritonitis. Will plan for conservative management at this time. I discussed with the patient that if there are no improvement in symptoms, she may need to undergo surgery which would likely be very difficult given her surgical history. She and her daughter agree with the plan. -SBO: NPO, NG to low continuous suction. LR @ 100 ml/h. -Possible UTI: UA showing possible UTI, however she is asymptomatic. I suspect with the ileal conduit the UA will be abnormal. Will follow up urine culture. No antibiotics at this time. -HTN and hyperlipidemia: Will hold oral medications at this time due to SBO -Hypothyroidism: Will order home levothyroxine and plan to clamp NG for medications. Absorption will be questionable so will consider IV if NG tube output remains high. -GERD: Continue home protonix. -DVT prophylaxis: heparin 5000 units SQ q8h -Full code. Son and daughter will be surrogate decision makers if needed.
[2019-09-12] MEDS ORDERED: Morphine INJ* 2 MG/ML 1 ML SYRINGE (TWO MG - NEW SYRINGE VERSION) IV PRN (11:28)
[2019-09-12] MEDS ORDERED: Albuterol 2.5 MG/3 ML NEB.SOL* (0.083%) INH PRN (11:33)
[2019-09-12] MEDS: Pantoprazole IV* 40 MG IV SCH (12:27)
[2019-09-13] MEDS: Lactated Ringers 1000 ML Bag* 1,000 ML IV SCH (02:42)
[2019-09-13] MEDS ORDERED: Levothyroxine TAB* 100 MCG TAB PO SCH (06:00)
[2019-09-13 06:09] LABS: ABS Eosinophils 0.3 10^3/ul (0-0.6); ABS Lymphocytes 2.2 10^3/ul (1.0-4.8); ABS Monocytes 0.9 10^3/ul (0-0.8); Eosinophil % 3.9 %; Hematocrit 37 % (35-47); Lymphocyte % 25.7 %; Mean Corpuscular HGB Conc 33 g/dL (31-36); Mean Corpuscular Hemoglobin 29 pg (27-31); Mean Corpuscular Volume 88 fL (80-97); Mean Platelet Volume 8.8 fL (7.4-10.4); Nucleated Red Blood Cells % 0.2; Platelet Count 258 10^3/uL (150-450); Red Blood Count 4.14 10^6 /uL (3.70-4.87); Red Cell Distribution Width 16 % (10-15); White Blood Count 8.5 10^3/uL (3.5-10.8)
[2019-09-13 06:18] LABS: Calcium 8.9 mg/dL (8.6-10.3)
[2019-09-13 06:23] LABS: BUN/Creatinine Ratio 40.3 (8-20); EGFR African American 113.9 (>60); EGFR Non-African American 94.1 (>60); Phosphorus 3.3 mg/dL (2.5-5.0)
--- NOTE | 2019-09-13 09:30 | PN ---
Progress Note - Progress Note Date of Service: 09/13/19 SOAP: Subjective:NAD NGT in place ambulating well in halls + small amt of flatus this am [] Objective: Vital Signs Temp 97.7 F 09/13/19 07:37 Pulse 74 09/13/19 07:37 Resp 16 09/13/19 07:37 BP 142/66 09/13/19 07:37 Pulse Ox 98 09/13/19 07:37 Intake & Output 09/12/19 09/13/19 09/13/19 18:59 06:59 18:59 Intake Total 1168 981 Output Total 1525 450 Balance -357 531 Intake: IV Fluids 958 981 LR 958 981 IVPB 210 Potassium chloride 210 Oral 0 Output: NG Tube Drainage Amount 475 200 Urine 1050 250 Other: Estimated Void Large [] PEX: GEN: NAD Chest: CTA CVS: RRR ABD: soft, + Tender, LUQ refers to LLQ - BS's EXT:Calves soft non tender Assessment: 74 yo Female with PMHG sig for SBO's with SBO, NGT placed with 675 output [] Plan: Continue conservative mgmnt with NPO and NGT and observation. Continue ambulating Ad Nguyen. Convert Levothyroxine to IV Pt also sen and examined by Dr Joyce []
[2019-09-13] MEDS: Pantoprazole IV* 40 MG IV SCH (09:48)
[2019-09-13] MEDS ORDERED: LEVOTHYROXINE IV SCH (10:00)
[2019-09-13] MEDS ORDERED: D5W IV SCH (10:00)
[2019-09-13] MEDS ORDERED: Acetaminophen SUPP* 650 MG SUPP PR PRN (10:52)
[2019-09-13] MEDS ORDERED: Saline NASAL SPRAY 0.65%* BTL BOTH NARES PRN (10:59)
[2019-09-13] MEDS: Mometasone 220 MCG MDI INH SCH ×2 (12:52→20:23)
[2019-09-13] MEDS: cefTRIAXone(*) 1 GM in NS 0.9% 50 ML* 50 ML IVPB SCH (12:58)
[2019-09-13] MEDS: NS 0.9% 1000 ML** 1,000 ML IV SCH ×2 (12:58→23:25)
[2019-09-13 13:05] LABS: Activated Partial Thrombo Time 23.6 seconds (26.0-38.0); INR 1.01 (0.82-1.09)
--- NOTE | 2019-09-13 13:09 | CONS ---
CC: Kelly Gipson MD; NASREEN Erazo; Geovanna Joyce MD * CONSULTATION REPORT: DATE OF CONSULT: 09/13/19 PRIMARY CARE PROVIDER: Kelly Gipson MD REQUESTING PHYSICIANS IN CONSULTATION: NASREEN Erazo; Geovanna Joyce MD OTHER PROVIDER: Dr. Turner. ATTENDING PHYSICIAN: Dr. Zamudio (dictated by NASREEN Lai) REASON FOR CONSULTATION: Headache, congestion, concern for sinusitis. HISTORY OF PRESENT ILLNESS/HOSPITAL COURSE: I refer you to Dr. Joyce's history and physical dictated on 09/12/19 for full and complete details, but in short, Ms. Espinosa is a 74-year-old female with a past medical history of hypertension, hyperlipidemia, hypothyroidism, who presented to the ER on with complaints of left-sided abdominal pain, nausea, vomiting x3 days and was found to have a small bowel obstruction. She was admitted to the hospital. The hospitalist team was asked to consult on the patient due to complaints of headache, clear right nostril drainage, periorbital pain, postnasal drainage x1 day. The patient denies cough, fever, chills, or sweats. She does complain of occasional abdominal pain but denies nausea, vomiting. She has a nasogastric tube in place to the right naris. Her last bowel movement was Friday. She has had some flatulence recently. She does complain of some mild sore throat which she believes is caused by NG tube. PAST MEDICAL HISTORY: 1. Hypertension. 2. Hyperlipidemia. 3. History of thyroid cancer, status post thyroidectomy. 4. GERD. 5. Asthma. PAST SURGICAL HISTORY: 1. Splenectomy. 2. Distal pancreatectomy. 3. Left ileal conduit. 4. Hernia repair x4, most recently due to incarcerated hernia. 5. Thyroidectomy. HOME MEDICATIONS: 1. Acetaminophen 650 mg p.o. b.i.d. 2. Albuterol nebulizer 2.5 mg inhalation q.6 hours p.r.n. 3. Albuterol HFA inhaler 1 to 2 puff inhalation q.4 hours p.r.n. 4. Aspirin 81 mg p.o. daily. 5. Calcium carbonate/vitamin D3 600 mg p.o. daily. 6. Duloxetine DR 60 mg p.o. daily. 7. Hydrochlorothiazide 12.5 mg p.o. daily. 8. Levothyroxine 100 mcg p.o. daily. 9. Losartan 50 mg p.o. daily. 10. Mometasone/formoterol 100/5 two puffs inhalation b.i.d. 11. Pantoprazole 40 mg p.o. daily. 12. Rosuvastatin 20 mg p.o. daily. 13. Tramadol 1 to 2 tabs p.o. q.6 hours p.r.n. 14. CoQ10 100 mg p.o. daily. 15. Umeclidinium bromide 62.5 mcg inhalation b.i.d. DRUG ALLERGIES: ADHESIVE TAPE, blistering. FAMILY HISTORY: Father had multiple CVAs. Mother in her 90s from complications of UTI. SOCIAL HISTORY: The patient denies use of tobacco or alcohol. She does not use illicit drugs. She is . She lives with her daughter. REVIEW OF SYSTEMS: A 14-point review of systems was performed and all the pertinent positives and negatives are in the HPI. All other systems are negative. PHYSICAL EXAM: General: Ms. Espinosa is a well-developed, well-nourished, obese, older white woman, who is sitting up in a chair with the lower extremities elevated. She appears comfortable and in no acute distress. Nasogastric tube in place to the right naris. HEENT: PERRL. EOMI. Nonicteric sclerae. Hearing is grossly intact. There is a right nasogastric tube in place. There is a small amount of clear drainage noted in the right naris, left naris appears without drainage. Oral mucous membranes are moist. There are no lesions. NG tube viewable in the posterior pharynx. No noted erythema or postnasal drainage. The right maxillary sinus area is mildly tender to palpation. Cardiovascular: Regular rate and rhythm with S1, S2 present without murmurs, rubs, clicks, or gallops. There is no JVD. No peripheral edema. Pulmonary: Symmetrical chest expansion without use of accessory muscles. Clear to auscultation bilaterally without rhonchi, wheeze, rubs, or rales. No digital clubbing or cyanosis. Abdomen: Decreased bowel sounds throughout, soft. There is left upper, left lower quadrant tenderness to palpation. Musculoskeletal: Full range of motion without pain or deformities. Neuro: The patient is awake. She is alert and oriented x3. Cranial nerves are grossly intact. She is able to move all her extremities with 5/5 bilateral upper and lower extremity strength. ASSESSMENT AND PLAN: Ms. Espinosa is a 74-year-old female with a past medical history of hypertension, hyperlipidemia, hypothyroidism due to thyroid cancer, status post thyroidectomy, who was admitted yesterday after having found a small bowel obstruction. Today, she complains of headache, congestion, right nasal drainage, postnasal drainage x1 day. The hospitalist team was asked to evaluate the patient for: 1. Small bowel obstruction. Management per surgical team. Continue lactated Ringer's, pain management, nausea control. The patient remains n.p.o. at this time. 2. Possible UTI. The patient had trace LE, 3+ bacteria, negative nitrites on urinalysis. She denies symptoms of dysuria, frequency, urgency or retention. Urine sample was sent for urine culture and reveals many CFU E. coli. Recommend treatment with ceftriaxone. 3. Headache, congestion, rhinorrhea, postnasal drainage. The patient complains of these symptoms times approximately 1 day. She notes that she gets frequent sinus infections. She also states she has been without her inhalers recently which she feels may have exacerbated her symptoms. At this time, I do not see a reason to suspect bacterial sinusitis and therefore we will treat symptomatically. Her inhalers will be restarted. Saline nasal spray has been ordered. Due to the patient's n.p.o. status, she has been offered [place] Tylenol as needed for headache. We will continue to monitor for need and also further intervention. 4. Hypertension. The patient's home medications are on hold at this time due to n.p.o. status. Her blood pressure is relatively well controlled. 5. Hyperlipidemia. Her home medications are on hold due to n.p.o. status. We will restart when possible. 6. Hypothyroidism. Continue IV levothyroxine. 7. GERD. Continue IV PPI. 8. Asthma. Restart home inhalers. The patient states she is on Asmanex and Anoro at home. These have been ordered. 9. DVT prophylaxis: Per Surgery, the patient does not appear to have DVT prophylaxis currently. We will discuss with surgical team and leave at their discretion. 10. Code status: Full code. TIME SPENT: Approximately 40 minutes was spent on this consultation, greater than half that time was spent [id number] with the patient and her daughter obtaining history, performing physical, and reviewing the plan of care. The case has been reviewed with my attending, Dr. Zamudio, who is in agreement with plan of care. NASREEN NOYOLA [id number]/CPS #: [id number] KALANI
[2019-09-13] MEDS: Heparin VIAL(*) 5000 UNITS/ML VIAL (FIVE THOUSAND) SUBCUT SCH ×2 (14:16→21:46)
[2019-09-14] MEDS: Heparin VIAL(*) 5000 UNITS/ML VIAL (FIVE THOUSAND) SUBCUT SCH ×3 (05:37→21:52)
[2019-09-14] MEDS: Levothyroxine INJ* 100 MCG/5 ML VIAL IV SCH (05:38)
[2019-09-14] MEDS: Pantoprazole IV* 40 MG IV SCH (08:30)
[2019-09-14] MEDS: NS 0.9% 1000 ML** 1,000 ML IV SCH ×2 (09:28→22:02)
[2019-09-14 09:50] LABS: BUN/Creatinine Ratio 33.9 (8-20); Calcium 8.7 mg/dL (8.6-10.3); EGFR Non-African American 105.8 (>60); Phosphorus 3.1 mg/dL (2.5-5.0); Potassium 3.7 mmol/L (3.5-5.0)
[2019-09-14] MEDS: Tiotropium Brom/Olodaterol MDI INH SCH (10:12)
[2019-09-14] MEDS: Mometasone 220 MCG MDI INH SCH ×2 (10:12→23:10)
[2019-09-14] MEDS: Ampicillin ADVAN(*) 1 GM in NS 0.9% 50 ML* 50 ML IVPB SCH ×3 (10:12→21:50)
--- NOTE | 2019-09-14 11:06 | PN ---
Progress Note - Progress Note Date of Service: 09/14/19 Note: No complaints this morning. Has only passed a very small amount of flatus, last time this morning. No bowel movements since admission. She denies abdominal pain or nausea. Denies chest pain, shortness of breath. Has been walking multiple laps around the unit. She does have a sensation of pressure behind her R eye. Afebrile. NG 910 ml/24h Temp Pulse Resp BP Pulse Ox 98 F 74 18 139/64 98 09/14/19 07:17 09/14/19 07:17 09/14/19 07:23 09/14/19 07:17 09/14/19 07:17 Intake & Output 09/13/19 09/14/19 09/14/19 22:59 06:59 14:59 Intake Total 0 980 980 Output Total 450 1010 200 Balance -450 -30 780 General: No acute distress. Comfortable sitting in chair. Nose: NG in R nare. No drainage in tube, brown-colored fluid in canister. Abdomen: soft, nontender, nondistended. No rebound or guarding. Extremities: Warm, no pedal edema, no calf tenderness. Neuro: Alert, orientedx3 Laboratory Results - last 24 hr 09/13/19 09/14/19 12:42 09:26 INR (Anticoag Therapy) 1.01 APTT 23.6 L Sodium 144 Potassium 3.7 Chloride 112 H Carbon Dioxide 21 L Anion Gap 11 BUN 19 Creatinine 0.56 Est GFR ( Amer) 128.0 Est GFR (Non-Af Amer) 105.8 BUN/Creatinine Ratio 33.9 H Glucose 73 Calcium 8.7 Phosphorus 3.1 Magnesium 2.0 A&P 74F with history of multiple surgeries, admitted with SBO. Pain has resolved, and she is passing a small amount of flatus. Continue to await return of bowel function. -NPO. NG to LWS. If drainage decreases, could try clamping trial later today. -IVF -Hypothyroidism: home levothyroxine IV. -HTN: holding home oral medications. Will continue to monitor. -Hyperlipidemia: holding home oral medications for now. -Possible sinusitis: Will take out NG when able. Ceftriaxone. Hospitalist service following. -DVT prophylaxis Heparin SQ
[2019-09-14] MEDS: cefTRIAXone(*) 1 GM in NS 0.9% 50 ML* 50 ML IVPB SCH (13:08)
--- NOTE | 2019-09-14 14:43 | PN ---
Subjective Date of Service: 09/14/19 Interval History: Patient seen and examined. States she is feeling better. No nausea, NGT remains in place and she is tolerating. Output is decreasing. She is ambulatory without assistance. Denies fevers or chills, no SOB, no overnight events. Objective Active Medications: Acetaminophen (Tylenol Supp*) 650 mg WI Q6H PRN PRN Reason: headache Last Admin: 09/13/19 14:16 Dose: 650 mg Albuterol (Ventolin 2.5 Mg/3 Ml Neb.Catherine*) 2.5 mg INH Q6H PRN PRN Reason: SOB/WHEEZING Heparin Sodium (Porcine) (Heparin Vial(*)) 5,000 units SUBCUT Q8HR [facility] Last Admin: 09/14/19 13:10 Dose: 5,000 units Ceftriaxone Sodium 1 gm/ (Sodium Chloride) 50 mls @ 100 mls/hr IVPB Q24H [facility] Last Admin: 09/14/19 13:08 Dose: 100 mls/hr Sodium Chloride (Ns 0.9% 1000 Ml) 1,000 mls @ 100 mls/hr IV PER RATE [facility] Last Admin: 09/14/19 09:28 Dose: 100 mls/hr Ampicillin Sodium 1 gm/ Sodium (Chloride) 50 mls @ 200 mls/hr IVPB Q6H [facility] Last Admin: 09/14/19 10:12 Dose: 200 mls/hr Levothyroxine Sodium (Synthroid Inj*) 50 mcg IV 0600 [facility] Last Admin: 09/14/19 05:38 Dose: 50 mcg Mometasone Furoate (Asmanex 220 Mcg Mdi *) 2 puff INH BID [facility]; Protocol Last Admin: 09/14/19 10:12 Dose: 2 puff Morphine Sulfate (Morphine Inj (Syringe))*) 2 mg IV Q4H PRN PRN Reason: PAIN - SEVERE Ondansetron HCl (Zofran Inj*) 4 mg IV Q4H PRN PRN Reason: NAUSEA/VOMITING Pantoprazole Sodium (Protonix Iv*) 40 mg IV DAILY [facility] Last Admin: 09/14/19 08:30 Dose: 40 mg Sodium Chloride (Sodium Chloride 0.65% Nasal Norton*) 1 spray BOTH NARES Q4H PRN PRN Reason: CONGESTION Last Admin: 09/13/19 14:13 Dose: 1 spr Tiotropium Joiner/Olodaterol (Stiolto Respimat Inh Norton (60 Puff)) 2 puff INH DAILY BARBARA Last Admin: 09/14/19 10:12 Dose: 2 puff Vital Signs - 8 hr 09/14/19 09/14/19 09/14/19 07:17 07:23 11:10 Temperature 98 F 97.5 F Pulse Rate 74 77 Respiratory 16 18 16 Rate Blood Pressure 139/64 134/57 (mmHg) O2 Sat by Pulse 98 99 Oximetry Oxygen Devices in Use Now: None Appearance: alert, NAD Eyes: PERRLA Ears/Nose/Mouth/Throat: NL Teeth, Lips, Gums, - - NG tube to right nares Neck: NL Appearance and Movements; NL JVP Respiratory: Symmetrical Chest Expansion and Respiratory Effort, Clear to Auscultation Cardiovascular: NL Sounds; No Murmurs; No JVD, RRR, No Edema Abdominal: NL Sounds; No Tenderness; No Distention, - - hypoactive BS, passing flatus Extremities: No Edema Skin: No Rash or Ulcers Neurological: Alert and Oriented x 3, NL Gait Lines/Tubes/Other Access: Clean, Dry and Intact Naso-enteral Tube Nutrition: - - NPO Result Diagrams: 09/13/19 05:21 09/14/19 09:26 Microbiology and Other Data: Microbiology 09/11/19 23:48 Urine Culture - Final Urine Escherichia Coli Enterococcus Faecalis Diagnostic Imaging: Patient Name: TITA ROJO Medical Record#: [id number] Ordering Physician: Zita Craig MD Acct.#: [id number] : 1945 Age: 74 Sex: F Location: EMERGENCY DEPARTMENT Exam Date: 09/12/19208 ADM Status: REG ER Order Information: CT ABD/PEL W Accession Number: [id number] CPT: 08812 PROCEDURE INFORMATION: Exam: CT Abdomen And Pelvis With Contrast Exam date and time: 09/12/2019 3:14 AM Age: 74 years old Clinical history: Abdominal pain; Generalized; Additional info: Llq abd pain. , UTI TECHNIQUE: Imaging protocol: Computed tomography of the abdomen and pelvis with intravenous contrast. Radiation optimization: All CT scans at this facility use at least one of these dose optimization techniques: automated exposure control; mA and/or kV adjustment per patient size (includes targeted exams where dose is matched to clinical indication); or iterative reconstruction. Contrast material: OMNI 300; Contrast volume: 100 ml; Contrast route: IV; COMPARISON: A/P W CT ABD/PEL W 05/22/2018 10:06 AM FINDINGS: Lungs: Linear opacity located in left lung base which may represent an area atelectasis and/or scarring. Liver: Normal. No mass. Gallbladder and bile ducts: Normal. No calcified stones. No ductal dilation. Pancreas: The patient is status post resection of portions of the body and tail of the pancreas. No ductal distention. No mass located in the head or body of the pancreas. Spleen: The spleen has been surgically removed. Adrenals: Normal. No mass. Kidneys and ureters: Both kidneys are of normal size. Bilateral extrarenal pelvis. Left renal cortical cysts measuring 2.7 cm in length and has a central density of 25 Hounsfield units. No hydronephrosis or nephrolithiasis. No hydroureter. The mid to distal ureters of both kidneys were difficult to identify. On the prior report there is apparently insertion the left ureter and ileal loop conduit which inserts into the dome of the diaphragm. Stomach and bowel: Abnormal distention of loops of small bowel located in the left flank and anterior peritoneal cavity. Fecal-like material is seen in the small bowel located in the anterior abdominal cavity in the upper pelvis. This appears to be the transition point in which the bowel located distal to this area is partially collapsed. Moderate amount of feces and air located in the cecum ascending colon and transverse colon. The descending colon is collapsed as well as the sigmoid colon. No abnormal colonic wall thickening. Appendix: No evidence of appendicitis. Intraperitoneal space: Multiple surgical clips are located in the gloria hepatis region in the anterior aspect of the left anterior pararenal space. Vasculature: Calcification of the wall of the abdominal aorta and iliac arteries. No abdominal aortic aneurysm. Lymph nodes: No periaortic or pericaval adenopathy. Numerous surgical clips are located around the abdominal aorta and in the area of the common iliac arteries and left side of the pelvis. This may represent a lymph node dissection. [facility] IMAGING Patient Name:TITA ROJO MR: [id number] : 1945 mesenteric adenopathy. Bladder: The bladder shows a tubular structure at the dome. Reproductive: Unremarkable as visualized. Bones/joints: Coarse trabecular pattern within the T11 and L1 vertebral bodies with the space between the trabeculated being hypodense. This represents hemangiomas. An electrode is in place through the right sacral foramina next to the right piriformis muscle. Soft tissues: The generator has been embedded in the subcutaneous tissues over the superior aspect of the right buttocks. IMPRESSION: 1. Small bowel obstruction located in the left flank region. The transition appears to be in the upper pelvis in the midline. The distal small bowel is collapsed. No bowel wall thickening or pneumatosis. No abdominal mass. Moderate amount of feces and air located in the cecum, ascending and transverse colon. No abnormal bowel wall thickening of the colon. 2. The patient has had a resection of the body and tail of the pancreas with an associated lymph node dissection. No apparent recurrence of the tumor. 3. Patient has had surgery to the left ureter in which the distal ureteral reconstruction which is implanted in the dome of the bladder. The right ureter is difficult to follow. Bilateral extrarenal pelvis with mild distention of both pyelocalyceal system. To contact [facility] with a general question: [facility] - [phone] For direct physician to physician contact: Physician Hotline - [phone] [facility] ([facility] Facility ID #[id number]) Assess/Plan/Problems-Billing Assessment: This is a 74 year old female with history of HTN, asthma, thyroidectomy, multiple abdominal surgeries, including partial pancreatectomy, ileal conduit, hernia repair that presented to the ER with complaints of N/V, found to have SBO. Hospitalists are consulted for medical co-management. - Patient Problems (1) Small bowel obstruction Code(s): K56.609 - UNSP INTESTNL OBST, UNSP TO PARTIAL VERSUS COMPLETE OBST SNOMED Code(s): 400459234 Comment: - POC as per surgery - Continue NGT - Continue NPO and IVF (2) History of ileal conduit Code(s): Z98.890 - OTHER SPECIFIED POSTPROCEDURAL STATES SNOMED Code(s): 370055006 Comment: - Per nursing notes, patient's urine is dark with sediment and mucous strands - Patient self caths and does have UTI with urine positive for eColi and enterococcus - Continue ceftriaxone, ampicillin added today based on NAKITA (3) HTN (hypertension) Code(s): I10 - ESSENTIAL (PRIMARY) HYPERTENSION SNOMED Code(s): 51063454 Comment: - BP stable off PO meds while NPO - Restart meds when diet advanced (4) Nasal congestion Code(s): R09.81 - NASAL CONGESTION SNOMED Code(s): 95446725 Comment: - Saline spray PRN - Does not appear to have URI, likely viral or allergies, however, she is being covered with ceftxn and ampicillin for UTI, continue to monitor (5) Asthma Code(s): J45.909 - UNSPECIFIED ASTHMA, UNCOMPLICATED SNOMED Code(s): 284202327 Comment: - Not in exacerbation, continue inhalers (6) Hypothyroid Code(s): E03.9 - HYPOTHYROIDISM, UNSPECIFIED SNOMED Code(s): 45640570 Comment: - 2/2 thyroidectomy, continue levothyroxine (7) DVT prophylaxis Code(s): Z29.9 - ENCOUNTER FOR PROPHYLACTIC MEASURES, UNSPECIFIED SNOMED Code( s): 457988252 Comment: - HSQ (8) Full code status Code(s): Z78.9 - OTHER SPECIFIED HEALTH STATUS SNOMED Code(s): 824122116 Status and Disposition: Inpatient, dispo per surgery
[2019-09-15] MEDS: Ampicillin ADVAN(*) 1 GM in NS 0.9% 50 ML* 50 ML IVPB SCH ×4 (03:42→22:04)
[2019-09-15] MEDS: Heparin VIAL(*) 5000 UNITS/ML VIAL (FIVE THOUSAND) SUBCUT SCH ×3 (05:51→22:05)
[2019-09-15] MEDS: Levothyroxine INJ* 100 MCG/5 ML VIAL IV SCH (05:51)
[2019-09-15 06:20] LABS: ABS Eosinophils 0.2 10^3/ul (0-0.6); ABS Lymphocytes 1.6 10^3/ul (1.0-4.8); ABS Monocytes 0.7 10^3/ul (0-0.8); ABS Neutrophils 4.4 10^3/ul (1.5-7.7); Eosinophil % 2.4 %; Hematocrit 34 % (35-47); Hemoglobin 10.9 g/dL (12.0-16.0); Lymphocyte % 23.4 %; Mean Corpuscular HGB Conc 32 g/dL (31-36); Mean Corpuscular Hemoglobin 29 pg (27-31); Mean Corpuscular Volume 90 fL (80-97); Mean Platelet Volume 8.8 fL (7.4-10.4); Nucleated Red Blood Cells % 0.1; Platelet Count 211 10^3/uL (150-450); Red Blood Count 3.76 10^6 /uL (3.70-4.87); Red Cell Distribution Width 17 % (10-15)
[2019-09-15 06:34] LABS: BUN/Creatinine Ratio 28.6 (8-20); Calcium 8.9 mg/dL (8.6-10.3); EGFR Non-African American 105.8 (>60); Phosphorus 2.9 mg/dL (2.5-5.0); Potassium 3.9 mmol/L (3.5-5.0)
[2019-09-15] MEDS: Mometasone 220 MCG MDI INH SCH ×3 (06:44→19:55)
[2019-09-15] MEDS: NS 0.9% 1000 ML** 1,000 ML IV SCH (09:26)
[2019-09-15] MEDS: Tiotropium Brom/Olodaterol MDI INH SCH (09:27)
[2019-09-15] MEDS: Pantoprazole IV* 40 MG IV SCH (09:29)
[2019-09-15] MEDS ORDERED: NS 0.45% 1000 ML BAG* 1,000 ML IV SCH (10:00)
--- NOTE | 2019-09-15 10:48 | PN ---
Progress Note - Progress Note Date of Service: 09/15/19 Note: Patient had a very small bowel movement this morning but minimal to no flatus. She only has mild abdominal pain when pushing on LUQ. Denies nausea. Has been walking in the hallways. Denies chest pain, shortness of breath. Afebrile. NG tube 1400ml/24h Temp Pulse Resp BP Pulse Ox 98.2 F 70 16 135/62 97 09/15/19 07:39 09/15/19 07:39 09/15/19 08:00 09/15/19 07:39 09/15/19 07:39 Intake & Output 09/14/19 09/15/19 09/15/19 22:59 06:59 14:59 Intake Total 1038 0 1134 Output Total 800 1300 375 Balance 238 -1300 759 General: No acute distress. Breathing comfortably on room air. Nose: NG in R nare, brown fluid draining. Abdomen: soft, nondistended. Tender to deep palpation in LUQ. No rebound or guarding. Extremities: no pedal edema, no calf tenderness Neuro: Alert, oriented x3 Laboratory Results - last 24 hr 09/15/19 09/15/19 05:50 05:50 WBC 7.0 RBC 3.76 Hgb 10.9 L Hct 34 L MCV 90 MCH 29 MCHC 32 RDW 17 H Plt Count 211 MPV 8.8 Neut % (Auto) 63.6 Lymph % (Auto) 23.4 Upson % (Auto) 10.2 Eos % (Auto) 2.4 Baso % (Auto) 0.4 Absolute Neuts (auto) 4.4 Absolute Lymphs (auto) 1.6 Absolute Monos (auto) 0.7 Absolute Eos (auto) 0.2 Absolute Basos (auto) 0.0 Absolute Nucleated RBC 0.0 Nucleated RBC % 0.1 Sodium 148 H Potassium 3.9 Chloride 115 H Carbon Dioxide 20 L Anion Gap 13 H BUN 16 Creatinine 0.56 Est GFR ( Amer) 128.0 Est GFR (Non-Af Amer) 105.8 BUN/Creatinine Ratio 28.6 H Glucose 85 Calcium 8.9 Phosphorus 2.9 Magnesium 2.0 74F with SBO. Still awaiting return of bowel function. Likely plan for CT scan today. -NPO. NG to LWS. -IVF changed to 1/2NS due to increasing Na and Cl -Ceftriaxone for possible UTI (cultures positive, although patient is asymptomatic and has ileal conduit). -DVT prophylaxis: heparin SQ -Synthroid IV. Holding home BP and cholesterol meds.
[2019-09-15] MEDS: cefTRIAXone(*) 1 GM in NS 0.9% 50 ML* 50 ML IVPB SCH (13:12)
--- NOTE | 2019-09-15 16:32 | PN ---
Subjective Date of Service: 09/15/19 Interval History: Patient seen and examined. No acute overnight events. States she had loose bowel movement this morning. Denies abdominal pain no n/v, no fevers or chills. Objective Active Medications: Acetaminophen (Tylenol Supp*) 650 mg AK Q6H PRN PRN Reason: headache Last Admin: 09/13/19 14:16 Dose: 650 mg Albuterol (Ventolin 2.5 Mg/3 Ml Neb.Catherine*) 2.5 mg INH Q6H PRN PRN Reason: SOB/WHEEZING Heparin Sodium (Porcine) (Heparin Vial(*)) 5,000 units SUBCUT Q8HR [facility] Last Admin: 09/15/19 13:52 Dose: 5,000 units Ceftriaxone Sodium 1 gm/ (Sodium Chloride) 50 mls @ 100 mls/hr IVPB Q24H [facility] Last Admin: 09/15/19 13:12 Dose: 100 mls/hr Ampicillin Sodium 1 gm/ Sodium (Chloride) 50 mls @ 200 mls/hr IVPB Q6H [facility] Last Admin: 09/15/19 15:25 Dose: 200 mls/hr Sodium Chloride (Ns 0.45% 1000 Ml Bag*) 1,000 mls @ 100 mls/hr IV PER RATE [facility] Last Admin: 09/15/19 09:59 Dose: 100 mls/hr Levothyroxine Sodium (Synthroid Inj*) 50 mcg IV 0600 [facility] Last Admin: 09/15/19 05:51 Dose: 50 mcg Mometasone Furoate (Asmanex 220 Mcg Mdi *) 2 puff INH BID [facility]; Protocol Last Admin: 09/15/19 09:30 Dose: 2 puff Morphine Sulfate (Morphine Inj (Syringe))*) 2 mg IV Q4H PRN PRN Reason: PAIN - SEVERE Ondansetron HCl (Zofran Inj*) 4 mg IV Q4H PRN PRN Reason: NAUSEA/VOMITING Pantoprazole Sodium (Protonix Iv*) 40 mg IV DAILY [facility] Last Admin: 09/15/19 09:29 Dose: 40 mg Sodium Chloride (Sodium Chloride 0.65% Nasal [place]*) 1 spray BOTH NARES Q4H PRN PRN Reason: CONGESTION Last Admin: 09/13/19 14:13 Dose: 1 spr Tiotropium [place]/Olodaterol (Stiolto Respimat Inh [place] (60 Puff)) 2 puff INH DAILY [facility] Last Admin: 09/15/19 09:27 Dose: 2 puff Vital Signs - 8 hr 09/15/19 09/15/19 11:16 15:34 Temperature 98.9 F 99 F Pulse Rate 77 79 Respiratory 16 18 Rate Blood Pressure 124/54 128/58 (mmHg) O2 Sat by Pulse 97 97 Oximetry Oxygen Devices in Use Now: None Appearance: alert, NAD Eyes: PERRLA Ears/Nose/Mouth/Throat: Mucous Membranes Moist Neck: NL Appearance and Movements; NL JVP Respiratory: Symmetrical Chest Expansion and Respiratory Effort, Clear to Auscultation Cardiovascular: NL Sounds; No Murmurs; No JVD, RRR Abdominal: - - non tender, non distended, hypoactive BS Extremities: No Edema, No Clubbing, Cyanosis Skin: No Rash or Ulcers Neurological: Alert and Oriented x 3, NL Gait Nutrition: - - NPO Result Diagrams: 09/15/19 05:50 09/15/19 05:50 Microbiology and Other Data: Microbiology 09/11/19 23:48 Urine Culture - Final Urine Escherichia Coli Enterococcus Faecalis Diagnostic Imaging: Patient Name: TITA ROJO Medical Record#: [id number] Ordering Physician: Zita Craig MD Acct.#: [id number] : 1945 Age: 74 Sex: F Location: EMERGENCY DEPARTMENT Exam Date: 09/12/19208 ADM Status: REG ER Order Information: CT ABD/PEL W Accession Number: [id number] CPT: 85099 PROCEDURE INFORMATION: Exam: CT Abdomen And Pelvis With Contrast Exam date and time: 09/12/2019 3:14 AM Age: 74 years old Clinical history: Abdominal pain; Generalized; Additional info: Llq abd pain. , UTI TECHNIQUE: Imaging protocol: Computed tomography of the abdomen and pelvis with intravenous contrast. Radiation optimization: All CT scans at this facility use at least one of these dose optimization techniques: automated exposure control; mA and/or kV adjustment per patient size (includes targeted exams where dose is matched to clinical indication); or iterative reconstruction. Contrast material: OMNI 300; Contrast volume: 100 ml; Contrast route: IV; COMPARISON: A/P W CT ABD/PEL W 05/22/2018 10:06 AM FINDINGS: Lungs: Linear opacity located in left lung base which may represent an area atelectasis and/or scarring. Liver: Normal. No mass. Gallbladder and bile ducts: Normal. No calcified stones. No ductal dilation. Pancreas: The patient is status post resection of portions of the body and tail of the pancreas. No ductal distention. No mass located in the head or body of the pancreas. Spleen: The spleen has been surgically removed. Adrenals: Normal. No mass. Kidneys and ureters: Both kidneys are of normal size. Bilateral extrarenal pelvis. Left renal cortical cysts measuring 2.7 cm in length and has a central density of 25 Hounsfield units. No hydronephrosis or nephrolithiasis. No hydroureter. The mid to distal ureters of both kidneys were difficult to identify. On the prior report there is apparently insertion the left ureter and ileal loop conduit which inserts into the dome of the diaphragm. Stomach and bowel: Abnormal distention of loops of small bowel located in the left flank and anterior peritoneal cavity. Fecal-like material is seen in the small bowel located in the anterior abdominal cavity in the upper pelvis. This appears to be the transition point in which the bowel located distal to this area is partially collapsed. Moderate amount of feces and air located in the cecum ascending colon and transverse colon. The descending colon is collapsed as well as the sigmoid colon. No abnormal colonic wall thickening. Appendix: No evidence of appendicitis. Intraperitoneal space: Multiple surgical clips are located in the gloria hepatis region in the anterior aspect of the left anterior pararenal space. Vasculature: Calcification of the wall of the abdominal aorta and iliac arteries. No abdominal aortic aneurysm. Lymph nodes: No periaortic or pericaval adenopathy. Numerous surgical clips are located around the abdominal aorta and in the area of the common iliac arteries and left side of the pelvis. This may represent a lymph node dissection. [facility] IMAGING Patient Name:TITA ROJO MR: [id number] : 1945 mesenteric adenopathy. Bladder: The bladder shows a tubular structure at the dome. Reproductive: Unremarkable as visualized. Bones/joints: Coarse trabecular pattern within the T11 and L1 vertebral bodies with the space between the trabeculated being hypodense. This represents hemangiomas. An electrode is in place through the right sacral foramina next to the right piriformis muscle. Soft tissues: The generator has been embedded in the subcutaneous tissues over the superior aspect of the right buttocks. IMPRESSION: 1. Small bowel obstruction located in the left flank region. The transition appears to be in the upper pelvis in the midline. The distal small bowel is collapsed. No bowel wall thickening or pneumatosis. No abdominal mass. Moderate amount of feces and air located in the cecum, ascending and transverse colon. No abnormal bowel wall thickening of the colon. 2. The patient has had a resection of the body and tail of the pancreas with an associated lymph node dissection. No apparent recurrence of the tumor. 3. Patient has had surgery to the left ureter in which the distal ureteral reconstruction which is implanted in the dome of the bladder. The right ureter is difficult to follow. Bilateral extrarenal pelvis with mild distention of both pyelocalyceal system. To contact [facility] with a general question: [facility] - [phone] For direct physician to physician contact: Physician Hotline - [phone] [facility] ([facility] Facility ID #[id number]) Assess/Plan/Problems-Billing Assessment: This is a 74 year old female with history of HTN, asthma, thyroidectomy, multiple abdominal surgeries, including partial pancreatectomy, ileal conduit, hernia repair that presented to the ER with complaints of N/V, found to have SBO. Hospitalists are consulted for medical co-management. - Patient Problems (1) Small bowel obstruction Code(s): K56.609 - UNSP INTESTNL OBST, UNSP TO PARTIAL VERSUS COMPLETE OBST SNOMED Code(s): 125062354 Comment: - POC as per surgery - Continue NGT - Continue NPO - Na+ and Cl- rising, changed to 1/2 NS, monitor lytes (2) History of ileal conduit Code(s): Z98.890 - OTHER SPECIFIED POSTPROCEDURAL STATES SNOMED Code(s): 380148982 Comment: - Per nursing notes, patient's urine is dark with sediment and mucous strands - Patient self caths and does have UTI with urine positive for eColi and enterococcus - Continue ceftriaxone, ampicillin based on NAKITA, would treat for 3-5 days based on colony counts (3) HTN (hypertension) Code(s): I10 - ESSENTIAL (PRIMARY) HYPERTENSION SNOMED Code(s): 55848626 Comment: - BP stable off PO meds while NPO - Restart meds when diet advanced (4) Nasal congestion Code(s): R09.81 - NASAL CONGESTION SNOMED Code(s): 24036702 Comment: - Saline spray PRN - Does not appear to have URI, likely viral or allergies, however, she is being covered with ceftxn and ampicillin for UTI, continue to monitor (5) Asthma Code(s): J45.909 - UNSPECIFIED ASTHMA, UNCOMPLICATED SNOMED Code(s): 247387471 Comment: - Not in exacerbation, continue inhalers (6) Hypothyroid Code(s): E03.9 - HYPOTHYROIDISM, UNSPECIFIED SNOMED Code(s): 03303287 Comment: - 2/2 thyroidectomy, continue levothyroxine (7) DVT prophylaxis Code(s): Z29.9 - ENCOUNTER FOR PROPHYLACTIC MEASURES, UNSPECIFIED SNOMED Code( s): 319583277 Comment: - HSQ (8) Full code status Code(s): Z78.9 - OTHER SPECIFIED HEALTH STATUS SNOMED Code(s): 684961699 Status and Disposition: Inpatient, dispo per surgery
[2019-09-15] MEDS: D5W 1/2 NS KCl 20 Meq 1000 ML* 1,000 ML IV SCH (20:51)
[2019-09-16] MEDS: Ampicillin ADVAN(*) 1 GM in NS 0.9% 50 ML* 50 ML IVPB SCH (03:51)
[2019-09-16] MEDS: Levothyroxine INJ* 100 MCG/5 ML VIAL IV SCH (05:17)
[2019-09-16] MEDS: Heparin VIAL(*) 5000 UNITS/ML VIAL (FIVE THOUSAND) SUBCUT SCH ×3 (05:19→21:47)
[2019-09-16 05:30] LABS: BUN/Creatinine Ratio 21.8 (8-20); Calcium 8.6 mg/dL (8.6-10.3); EGFR African American 130.7 (>60); Magnesium 1.9 mg/dL (1.9-2.7); Phosphorus 2.4 mg/dL (2.5-5.0); Potassium 3.3 mmol/L (3.5-5.0)
[2019-09-16] MEDS: D5W 1/2 NS KCl 20 Meq 1000 ML* 1,000 ML IV SCH ×2 (07:35→18:35)
[2019-09-16] MEDS: Mometasone 220 MCG MDI INH SCH ×2 (07:52→19:39)
[2019-09-16] MEDS: Tiotropium Brom/Olodaterol MDI INH SCH (07:53)
[2019-09-16] MEDS: Pantoprazole IV* 40 MG IV SCH (08:27)
[2019-09-16] MEDS ORDERED: Magnesium Sulfate 1 GM IV* 1 GM/100 ML BAG IV ONE (10:25)
[2019-09-16] MEDS ORDERED: Lorazepam PYXIS KEY PRN (10:37)
[2019-09-16] MEDS ORDERED: LORazepam INJ* 2 MG/ML 1 ML VIAL IV PUSH PRN (10:37)
[2019-09-16] MEDS ORDERED: Iohexol 300* (CONTRAST) 10 ML SDV IV ONE (10:45)
[2019-09-16] MEDS ORDERED: Potassium Phosphate IV* 10 MMOLE in NS 0.9% 250 ML* 250 ML IVPB ONE (11:00)
--- NOTE | 2019-09-16 11:15 | PN ---
CC: Primary Care Doctor; [facility] PROGRESS NOTE: DATE OF SERVICE: 09/16/19 LOCATION: The patient was seen at the bedside. HISTORY: Ms. Espinosa is a 74-year-old female admitted to our service on 09/12/19 with small bowel obstruction. The patient has a complex past surgical history of an exploratory laparotomy, freeing up of right ure ter, and a left ureteral to ileal conduit to bladder surgery. Postoperative course was complicated w ith hernias that required 2 trips to the operating room for incisional hernia repair with mesh. The patient had a third hernia that ended up becoming strangulated requiring urgent surgery, did not requ sylvia bowel resection according to the patient and additional mesh repair. The patient also had admission in 2018 for abdominal pain that required NG tube and observation. Dur ing that time, the patient was noted to have a pancreatic lesion. 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 This turned out not to be a cancer and the patient did not require any additional intervention. Today, the patient states that she is more "lethargic." She has been able to walk around the floor, but today she felt she can only do 2 laps before she was fatigued. She is thirsty and hungry. She d oes not complain of abdominal pain. She has not passed flatus. She had a small bowel movement yester day, but she feels that she will not have a bowel movement at this point. PHYSICAL EXAMINATION: On physical exam today, temperature 98.5, blood pressure 134/72, pulse rate 73 . She is alert and oriented x3, in no apparent distress. Head, Ears, Eyes, Nose, and Throat: Normoc ephalic, atraumatic. Sclerae anicteric. Mucous membranes moist. Lungs: Clear. Abdomen is soft, no ndistended. Tender just right at the umbilicus. Normoactive bowel sounds. No hernias noted. Midli ne scar intact. Rectal exam not performed. Extremities within normal limits. LABORATORY DATA: Labs reviewed, show a white count of 7 from yesterday. Chemistry panel from today does show low potassium, low phosphatase, normal creatinine. IMPRESSION AND PLAN: Small bowel obstruction. The patient with complex abdominal history with mild improvement that has not persisted going into today's evaluation. I would like to have the patient un dergo a repeat CT scan with IV and p.o. contrast. I described this to her and her daughter today. S he will possibly require surgery and we talked about an exploratory laparotomy. The patient will remain n.p.o., on IV fluids. I talked to the hospitalist service about repletion of the electrolytes. Plan will be to continue subcutaneous heparin, out of bed, and continue NG tube. Of note, the NG tube output was 1000 in the last 24 hours, which was down from 1400 prior. [id number]/[facility] #: [id number]
--- NOTE | 2019-09-16 14:17 | PN ---
Subjective Date of Service: 09/16/19 Interval History: Patient seen and examined. Complaining of fatigue today, and does appear tearful. No flatus, no BM. No pain at rest, no n/v. NGT remains in place with significant amount of output. No fevers or chills. Daughter at bedside. Objective Active Medications: Acetaminophen (Tylenol Supp*) [address] Q6H PRN PRN Reason: headache Last Admin: 09/13/19 14:16 Dose: 650 mg Albuterol (Ventolin 2.5 Mg/3 Ml Neb.Catherine*) 2.5 mg INH Q6H PRN PRN Reason: SOB/WHEEZING Heparin Sodium (Porcine) (Heparin Vial(*)) 5,000 units SUBCUT Q8HR [facility] Last Admin: 09/16/19 05:19 Dose: 5,000 units Potassium Chloride/Dextrose (D5w 1/2 Ns Kcl 20 Meq 1000 Ml*) 1,000 mls @ 100 mls/hr IV PER RATE [facility] Last Admin: 09/16/19 07:35 Dose: 100 mls/hr Potassium Phosphate 10 mmole/ (Sodium Chloride) 253.3333 mls @ 42 mls/hr IVPB ONCE ONE Stop: 09/16/19 17:01 Last Admin: 09/16/19 12:33 Dose: 42 mls/hr Levothyroxine Sodium (Synthroid Inj*) 50 mcg IV 0600 [facility] Last Admin: 09/16/19 05:17 Dose: 50 mcg Lorazepam (Ativan Inj*) 0.5 mg IV PUSH TID PRN PRN Reason: ANXIETY Last Admin: 09/16/19 10:54 Dose: 0.5 mg Miscellaneous (Ativan Pyxis [place]) 1 ea N/A .ATIVAN IV TEJADA PRN PRN Reason: PYXIS TEJADA Mometasone Furoate (Asmanex 220 Mcg Mdi *) 2 puff INH BID [facility]; Protocol Last Admin: 09/16/19 07:52 Dose: 2 puff Morphine Sulfate (Morphine Inj (Syringe))*) 2 mg IV Q4H PRN PRN Reason: PAIN - SEVERE Ondansetron HCl (Zofran Inj*) 4 mg IV Q4H PRN PRN Reason: NAUSEA/VOMITING Pantoprazole Sodium (Protonix Iv*) 40 mg IV DAILY [facility] Last Admin: 09/16/19 08:27 Dose: 40 mg Sodium Chloride (Sodium Chloride 0.65% Nasal [place]*) 1 spray BOTH NARES Q4H PRN PRN Reason: CONGESTION Last Admin: 09/13/19 14:13 Dose: 1 spr Tiotropium [place]/Olodaterol (Stiolto Respimat Inh [place] (60 Puff)) 2 puff INH DAILY [facility] Last Admin: 09/16/19 07:53 Dose: 2 puff Vital Signs - 8 hr 09/16/19 09/16/19 09/16/19 08:00 10:54 11:42 Temperature 98.5 F 98.2 F Pulse Rate 73 70 Respiratory 18 20 14 Rate Blood Pressure 134/72 133/68 (mmHg) O2 Sat by Pulse 99 96 Oximetry 09/16/19 12:37 Temperature Pulse Rate Respiratory 20 Rate Blood Pressure (mmHg) O2 Sat by Pulse Oximetry Oxygen Devices in Use Now: None Appearance: alert, tearful Eyes: PERRLA Ears/Nose/Mouth/Throat: NL Teeth, Lips, Gums Neck: NL Appearance and Movements; NL JVP Respiratory: Symmetrical Chest Expansion and Respiratory Effort, Clear to Auscultation Cardiovascular: NL Sounds; No Murmurs; No JVD, RRR Abdominal: - - soft, no appreciable BS today, one area of tenderness to palpation deep RLQ Extremities: No Edema Skin: No Rash or Ulcers Neurological: Alert and Oriented x 3 Lines/Tubes/Other Access: Clean, Dry and Intact Naso-enteral Tube - to low wall suction Result Diagrams: 09/15/19 05:50 09/16/19 04:56 Microbiology and Other Data: Microbiology 09/11/19 23:48 Urine Culture - Final Urine Escherichia Coli Enterococcus Faecalis Diagnostic Imaging: Patient Name: TITA ROJO Medical Record#: [id number] Ordering Physician: Zita Craig MD Acct.#: [id number] : 1945 Age: 74 Sex: F Location: EMERGENCY DEPARTMENT Exam Date: 09/12/19208 ADM Status: REG ER Order Information: CT ABD/PEL W Accession Number: [id number] CPT: 61641 PROCEDURE INFORMATION: Exam: CT Abdomen And Pelvis With Contrast Exam date and time: 09/12/2019 3:14 AM Age: 74 years old Clinical history: Abdominal pain; Generalized; Additional info: Llq abd pain. , UTI TECHNIQUE: Imaging protocol: Computed tomography of the abdomen and pelvis with intravenous contrast. Radiation optimization: All CT scans at this facility use at least one of these dose optimization techniques: automated exposure control; mA and/or kV adjustment per patient size (includes targeted exams where dose is matched to clinical indication); or iterative reconstruction. Contrast material: OMNI 300; Contrast volume: 100 ml; Contrast route: IV; COMPARISON: A/P W CT ABD/PEL W 05/22/2018 10:06 AM FINDINGS: Lungs: Linear opacity located in left lung base which may represent an area atelectasis and/or scarring. Liver: Normal. No mass. Gallbladder and bile ducts: Normal. No calcified stones. No ductal dilation. Pancreas: The patient is status post resection of portions of the body and tail of the pancreas. No ductal distention. No mass located in the head or body of the pancreas. Spleen: The spleen has been surgically removed. Adrenals: Normal. No mass. Kidneys and ureters: Both kidneys are of normal size. Bilateral extrarenal pelvis. Left renal cortical cysts measuring 2.7 cm in length and has a central density of 25 Hounsfield units. No hydronephrosis or nephrolithiasis. No hydroureter. The mid to distal ureters of both kidneys were difficult to identify. On the prior report there is apparently insertion the left ureter and ileal loop conduit which inserts into the dome of the diaphragm. Stomach and bowel: Abnormal distention of loops of small bowel located in the left flank and anterior peritoneal cavity. Fecal-like material is seen in the small bowel located in the anterior abdominal cavity in the upper pelvis. This appears to be the transition point in which the bowel located distal to this area is partially collapsed. Moderate amount of feces and air located in the cecum ascending colon and transverse colon. The descending colon is collapsed as well as the sigmoid colon. No abnormal colonic wall thickening. Appendix: No evidence of appendicitis. Intraperitoneal space: Multiple surgical clips are located in the gloria hepatis region in the anterior aspect of the left anterior pararenal space. Vasculature: Calcification of the wall of the abdominal aorta and iliac arteries. No abdominal aortic aneurysm. Lymph nodes: No periaortic or pericaval adenopathy. Numerous surgical clips are located around the abdominal aorta and in the area of the common iliac arteries and left side of the pelvis. This may represent a lymph node dissection. No [facility] IM[facility] Patient Name:TITA ROJO MR: [id number] : 1945 mesenteric adenopathy. Bladder: The bladder shows a tubular structure at the dome. Reproductive: Unremarkable as visualized. Bones/joints: Coarse trabecular pattern within the T11 and L1 vertebral bodies with the space between the trabeculated being hypodense. This represents hemangiomas. An electrode is in place through the right sacral foramina next to the right piriformis muscle. Soft tissues: The generator has been embedded in the subcutaneous tissues over the superior aspect of the right buttocks. IMPRESSION: 1. Small bowel obstruction located in the left flank region. The transition appears to be in the upper pelvis in the midline. The distal small bowel is collapsed. No bowel wall thickening or pneumatosis. No abdominal mass. Moderate amount of feces and air located in the cecum, ascending and transverse colon. No abnormal bowel wall thickening of the colon. 2. The patient has had a resection of the body and tail of the pancreas with an associated lymph node dissection. No apparent recurrence of the tumor. 3. Patient has had surgery to the left ureter in which the distal ureteral reconstruction which is implanted in the dome of the bladder. The right ureter is difficult to follow. Bilateral extrarenal pelvis with mild distention of both pyelocalyceal system. To contact [facility] with a general question: [facility] - [phone] For direct physician to physician contact: Physician Hotline - [phone] [facility] ([facility] Facility ID #[id number]) Assess/Plan/Problems-Billing Assessment: This is a 74 year old female with history of HTN, asthma, thyroidectomy, multiple abdominal surgeries, including partial pancreatectomy, ileal conduit, hernia repair that presented to the ER with complaints of N/V, found to have SBO. Hospitalists are consulted for medical co-management. - Patient Problems (1) Small bowel obstruction Code(s): K56.609 - UNSP INTESTNL OBST, UNSP TO PARTIAL VERSUS COMPLETE OBST SNOMED Code(s): 034429222 Comment: - POC as per surgery - Continue NGT - Continue NPO - Na+ and Cl- rising, Mg and Phos low, IVF changed, continue repleting lytes while NPO - Follow up CT pending today (2) History of ileal conduit Code(s): Z98.890 - OTHER SPECIFIED POSTPROCEDURAL STATES SNOMED Code(s): 599207084 Comment: - Hx of ileal conduit and intermittent self cath with mucous and sediment in urine - Cx pos for ecoli and enterococcus, although lower burden enterococcus - Urine clearing, ceftriaxone completed, DC ampicillin today (3) Anxiety Code(s): F41.9 - ANXIETY DISORDER, UNSPECIFIED SNOMED Code(s): 11010985 Comment: - Patient tearful during today's exam - Has been off SNRI while NPO - Will order PRN ativan IV for now TID, transition back onto her home meds when no longer NPO (4) HTN (hypertension) Code(s): I10 - ESSENTIAL (PRIMARY) HYPERTENSION SNOMED Code(s): 09453563 Comment: - BP stable off PO meds while NPO - Restart meds when diet advanced (5) Nasal congestion Code(s): R09.81 - NASAL CONGESTION SNOMED Code(s): 23976912 Comment: - Saline spray PRN - Does not appear to have URI, likely viral or allergies, however, she is being covered with ceftxn and ampicillin for UTI, continue to monitor (6) Asthma Code(s): J45.909 - UNSPECIFIED ASTHMA, UNCOMPLICATED SNOMED Code(s): 457995386 Comment: - Not in exacerbation, continue inhalers (7) Hypothyroid Code(s): E03.9 - HYPOTHYROIDISM, UNSPECIFIED SNOMED Code(s): 78785562 Comment: - 2/2 thyroidectomy, continue levothyroxine (8) DVT prophylaxis Code(s): Z29.9 - ENCOUNTER FOR PROPHYLACTIC MEASURES, UNSPECIFIED SNOMED Code( s): 977350427 Comment: - HSQ (9) Full code status Code(s): Z78.9 - OTHER SPECIFIED HEALTH STATUS SNOMED Code(s): 099064869 Status and Disposition: Inpatient, dispo per surgery
[2019-09-17] MEDS: D5W 1/2 NS KCl 20 Meq 1000 ML* 1,000 ML IV SCH ×2 (04:28→16:12)
[2019-09-17] MEDS: Levothyroxine INJ* 100 MCG/5 ML VIAL IV SCH (06:27)
[2019-09-17] MEDS: Heparin VIAL(*) 5000 UNITS/ML VIAL (FIVE THOUSAND) SUBCUT SCH ×3 (06:27→22:00)
[2019-09-17 06:28] LABS: ABS Eosinophils 0.3 10^3/ul (0-0.6); ABS Lymphocytes 2.2 10^3/ul (1.0-4.8); ABS Monocytes 0.7 10^3/ul (0-0.8); ABS Neutrophils 3.9 10^3/ul (1.5-7.7); Eosinophil % 4.8 %; Hematocrit 33 % (35-47); Hemoglobin 11.3 g/dL (12.0-16.0); Lymphocyte % 30.6 %; Mean Corpuscular HGB Conc 34 g/dL (31-36); Mean Corpuscular Hemoglobin 30 pg (27-31); Mean Corpuscular Volume 88 fL (80-97); Mean Platelet Volume 9.1 fL (7.4-10.4); Nucleated Red Blood Cells % 0.2; Platelet Count 196 10^3/uL (150-450); Red Cell Distribution Width 17 % (10-15); White Blood Count 7.2 10^3/uL (3.5-10.8)
[2019-09-17 06:44] LABS: Albumin 3.1 g/dL (3.2-5.2); Albumin/Globulin Ratio 1.6 (1-3); BUN/Creatinine Ratio 11.8 (8-20); Calcium 8.3 mg/dL (8.6-10.3); EGFR African American 142.6 (>60); EGFR Non-African American 117.9 (>60); Magnesium 1.8 mg/dL (1.9-2.7); Phosphorus 2.3 mg/dL (2.5-5.0); Potassium 3.4 mmol/L (3.5-5.0); Total Bilirubin 0.5 mg/dL (0.2-1.0); Total Protein 5.1 g/dL (6.4-8.9)
[2019-09-17] MEDS ORDERED: Magnesium Sulfate 2 GM IV* 2 GM/50 ML BAG IVPB ONE (07:36)
[2019-09-17] MEDS ORDERED: Potassium Phosphate IV* 15 MMOLE in NS 0.9% 250 ML* 250 ML IVPB ONE (07:36)
--- NOTE | 2019-09-17 09:22 | PN ---
Progress Note - Progress Note Date of Service: 09/17/19 Note: Feeling tired this morning, but better than yesterday. Denies abdominal pain this morning. Did have a normal bowel movement and flatus yesterday afternoon after oral contrast. CT scan yesterday did not show SBO. Denies chest pain, abdominal pain. Has been ambulating. NG 700/24h Temp Pulse Resp BP Pulse Ox 98 F 75 16 140/72 97 09/17/19 08:31 09/17/19 08:31 09/17/19 08:31 09/17/19 08:31 09/17/19 03:29 Intake & Output 09/16/19 09/17/19 09/17/19 22:59 06:59 14:59 Intake Total 1208 980 Output Total 250 1100 Balance 958 -120 General: No acute distress, appears fatigued. Nose: NG tube with brown-colored fluid. Abdomen: soft, nondistended, tenderness to deep palpation in epigastrium. No rebound or guarding. Extremities: Warm, no pedal edema Neuro: Alert, oriented x3 Laboratory Results - last 24 hr 09/17/19 09/17/19 06:17 06:17 WBC 7.2 RBC 3.80 Hgb 11.3 L Hct 33 L MCV 88 MCH 30 MCHC 34 RDW 17 H Plt Count 196 MPV 9.1 Neut % (Auto) 54.4 Lymph % (Auto) 30.6 Daniels % (Auto) 9.8 Eos % (Auto) 4.8 Baso % (Auto) 0.4 Absolute Neuts (auto) 3.9 Absolute Lymphs (auto) 2.2 Absolute Monos (auto) 0.7 Absolute Eos (auto) 0.3 Absolute Basos (auto) 0.0 Absolute Nucleated RBC 0.0 Nucleated RBC % 0.2 Sodium 141 Potassium 3.4 L Chloride 112 H Carbon Dioxide 23 Anion Gap 6 BUN 6 Creatinine 0.51 Est GFR ( Amer) 142.6 Est GFR (Non-Af Amer) 117.9 BUN/Creatinine Ratio 11.8 Glucose 140 H Calcium 8.3 L Phosphorus 2.3 L Magnesium 1.8 L Total Bilirubin 0.50 AST 11 L ALT 9 Alkaline Phosphatase 63 Total Protein 5.1 L Albumin 3.1 L Globulin 2.0 Albumin/Globulin Ratio 1.6 A&P 74F with SBO, resolving. -Clamp NG and check residual in 4 hours. Plan to remove in 4 hours if <200 ml and no nausea. -Plan to advance to clears this afternoon if remains asymptomatic. Continue D5-1 /2NS-20K until tolerating clears. -Hypokalemia, hypophosphatemia, hypomagnesemia- IV replacement ordered -HTN, hyperlipidemia- will reorder home meds to start tomorrow -Anxiety- restart home Cymbalta -Hypothyroidism- switch IV to po levothyroxine -DVT prophylaxis- SQ heparin -Plan for d/c to home likely Sun or Mon
[2019-09-17] MEDS ORDERED: Acetaminophen TAB* 325 MG PO PRN (09:27)
[2019-09-17] MEDS: Tiotropium Brom/Olodaterol MDI INH SCH (09:35)
[2019-09-17] MEDS: Mometasone 220 MCG MDI INH SCH ×2 (09:36→19:41)
[2019-09-17] MEDS: Pantoprazole IV* 40 MG IV SCH (09:41)
[2019-09-17] MEDS: KCL 10 MEQ/50 ML IVPREMIX* 10 MEQ/50 ML BAG IV SCH ×2 (10:00→11:06)
--- NOTE | 2019-09-17 17:19 | PN ---
Hospitalist Progress Note Date of Service: 09/17/19 Patient appears hemodynamically stable, NGT removed today. Lytes being repleted by surgery, no active infection. Recommend restarting home meds at discharge. Medicine with sign off. Please re-consult if any new findings or issues. Thank you.
[2019-09-17] MEDS ORDERED: DULoxetine DR CAP* 60 MG CAP.DR PO SCH (20:00)
[2019-09-18] MEDS: Heparin VIAL(*) 5000 UNITS/ML VIAL (FIVE THOUSAND) SUBCUT SCH (05:18)
[2019-09-18] MEDS ORDERED: Levothyroxine TAB* 100 MCG TAB PO SCH (06:00)
[2019-09-18] MEDS: Mometasone 220 MCG MDI INH SCH (07:54)
[2019-09-18] MEDS: Tiotropium Brom/Olodaterol MDI INH SCH (07:55)
[2019-09-18] MEDS ORDERED: Losartan TAB* 25 MG PO SCH (09:00)
[2019-09-18] MEDS ORDERED: Hydrochlorothiazide TAB* 25 MG PO SCH (09:00)
[2019-09-18] MEDS ORDERED: Aspirin EC TAB* 81 MG TAB.EC PO SCH (09:00)
[2019-09-18] MEDS ORDERED: Pantoprazole TAB * 40 MG TAB PO SCH (09:00)
[2019-09-18] MEDS ORDERED: Atorvastatin* 40 MG TAB PO SCH (09:00)
[2019-09-18 11:43] VITALS: BP 116/61
--- NOTE | 2019-09-18 12:15 | PN ---
Progress Note - Progress Note Date of Service: 09/18/19 Note: Surgery Progress Note S: Patient is doing very well. She denies pain. She has been tolerating a full liquid diet. She is having BM and flatus. O: Vital Signs - 24 hr 09/17/19 09/17/19 09/17/19 15:25 19:00 19:43 Temperature 99.0 F 97.4 F Pulse Rate 71 94 82 Respiratory 18 16 16 Rate Blood Pressure 129/65 119/54 (mmHg) O2 Sat by Pulse 97 99 93 Oximetry 09/17/19 09/17/19 09/18/19 20:00 23:55 03:14 Temperature 98.4 F 98.3 F Pulse Rate 77 72 Respiratory 16 16 18 Rate Blood Pressure 125/66 138/67 (mmHg) O2 Sat by Pulse 96 93 Oximetry 09/18/19 09/18/19 09/18/19 07:46 07:56 08:00 Temperature 98 F Pulse Rate 76 76 Respiratory 18 14 14 Rate Blood Pressure 138/77 (mmHg) O2 Sat by Pulse 98 98 Oximetry 09/18/19 11:42 Temperature 98.1 F Pulse Rate 75 Respiratory 16 Rate Blood Pressure 116/61 (mmHg) O2 Sat by Pulse 97 Oximetry Intake & Output 09/17/19 09/18/19 09/18/19 22:59 06:59 14:59 Intake Total 1037 300 Output Total 300 500 150 Balance 737 -200 -150 Intake: IV Fluids 1037 D5W 1/2 NS 20 meq KCL 987 mag 50 Oral 300 Output: Urine 100 500 150 Straight Cath 200 Other: # Bowel Movements 1 Estimated Stool Amount Medium Physical exam: abdomen- soft, minimally tender in epigastrum, non distended A/P: 74 F who was admitted with a SBO, resolved. - DC home today - Patient was instructed to advance diet from fulls to soft at home. Return precautions for fever, worsening pain, no bowel function - FU with PCP and Dr. Joyce after DC
--- NOTE | 2019-09-21 08:54 | DS ---
ADMIT DATE: 09/12/19 DISCHARGE DATE:09/18/19 REASON FOR ADMISSION: Small bowel obstruction CONDITION AT DISCHARGE: Stable PERTINENT PHYSICAL FINDINGS: Abdomen soft, mild tenderness in epigastrium. PROCEDURES: None HOSPITAL COURSE: Tiesha Espinosa is a 74 year-old woman with a history of multiple abdominal surgeries. She presented with a 3-day history of abdominal pain, nausea, and vomiting. CT scan performed in the ED showed small bowel obstruction. She was admitted to the surgery service. NG tube was placed and kept to suction. She remained NPO with IV fluids. Her symptoms resolved quickly, however she was not having bowel movements or passing flatus for the first few days of her hospital course. On 09/16, she felt more fatigued with more abdominal pain. A repeat CT scan with oral contrast was performed which showed no evidence of bowel obstruction. She had a bowel movement shortly after the CT scan. The NG tube was removed on 09/17. She was started on clear liquids and advanced to full liquids, which she tolerated well. On admission, UA suggested UTI, and urine culture showed >100,000 colonies E. coli and Enterococcus faecalis. 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 Based on the urine culture, she was treated with ceftriaxone and ampicillin. The hospitalist service was consulted to help manage her chronic conditions and possible UTI. She was medically ready for discharge to home on 09/18. DISPOSITION: Home DISCHARGE INSTRUCTIONS: Avoid constipation (Drink plenty of fluids and use Miralax or other over the counter laxatives and stool softeners as needed). Advance diet slowly to soft diet then regular diet. Follow up with Dr Gipson. May follow up with Dr Joyce as needed.
== END 2019-09-18 12:30 | disposition home or self-care (01) | DRG 389 ==
LOC: ED 23:37 → SSU 09-12 05:59
PROVIDERS: ADMIT Surgery Surgical Critical Care; ATTEND Surgery Surgical Critical Care
DX: K56.609 Unspecified intestinal obstruction, unspecified as to partial versus complete obstruction (principal); N39.0 Urinary tract infection, site not specified; I10 Essential (primary) hypertension; E78.5 Hyperlipidemia, unspecified; K21.9 Gastro-esophageal reflux disease without esophagitis; E03.9 Hypothyroidism, unspecified; E83.39 Other disorders of phosphorus metabolism; E83.42 Hypomagnesemia; E87.6 Hypokalemia; J45.909 Unspecified asthma, uncomplicated; R09.81 Nasal congestion; F41.9 Anxiety disorder, unspecified; E66.9 Obesity, unspecified; B96.20 Unspecified Escherichia coli [E. coli] as the cause of diseases classified elsewhere; Z68.31 Body mass index [BMI] 31.0-31.9, adult; Z98.890 Other specified postprocedural states; Z85.850 Personal history of malignant neoplasm of thyroid; Z79.1 Long term (current) use of non-steroidal anti-inflammatories (NSAID); Z79.82 Long term (current) use of aspirin; Z79.51 Long term (current) use of inhaled steroids; Z79.899 Other long term (current) drug therapy; Z91.048 Other nonmedicinal substance allergy status; Z82.3 Family history of stroke
CPT/HCPCS: 36415; 74177; 80048; 80053; 81003; 81015; 83605; 83690; 83735; 84100; 85025; 85610; 85730; 86140; 87077; 87086; 87186; 94640; 99284; A9270-GY; J0696; J0744; J1644; J1885; J2060; J2405; J3475; J3480; J3535; Q9967

== ENCOUNTER 2019-11-01 13:24 | Day surgery (SDC) | payer MEDICARE, BC ==
[~2019-11-01 13:24] MED LIST changes: -Acetaminophen TAB* 325 MG PO PRN; -Bupivacaine 0.25% SDV PF* 10 ML VIAL INJ ONE; +Dexamethasone IV* 4 MG/ML 1 ML (4 MG) IV SLOW PU ONE; +Famotidine IV* 10 MG/ML 2 ML (20 mg) IV ONE; -Midazolam* 1 MG/ML 2 ML VIAL (2 MG) ONE; -Naloxone* 0.4 MG/ML 1 ML VIAL IV PRN; -Propofol* 10 MG/ML 20 ML BTL ONE; -ceFAZolin 2 GM in NS PREMIX(*) 2 GM/100 ML BAG IVPB ONE; -fentaNYL* 50 MCG/ML 2 ML VIAL (100 MCG VIAL) ONE; -oxyCODONE/Acetamin 5/325 MG* TAB PO PRN
[2019-11-01] MEDS ORDERED: Dexamethasone IV* 4 MG/ML 1 ML (4 MG) ONE (14:19)
[2019-11-01] MEDS ORDERED: ceFAZolin 2 GM PREMIX in ORs 2 GM/50 ML BAG ONE (14:19)
[2019-11-01] MEDS ORDERED: Famotidine IV* 10 MG/ML 2 ML (20 mg) ONE (14:20)
[2019-11-01] MEDS ORDERED: fentaNYL* 50 MCG/ML 2 ML VIAL (100 MCG VIAL) ONE (15:19)
[2019-11-01] MEDS ORDERED: KETAMINE HCL* 50 MG/ML 10 ML VIAL ONE (15:24)
[2019-11-01] MEDS ORDERED: Bupivacaine 0.25% SDV PF* 10 ML VIAL INJ ONE (16:10)
[2019-11-01] MEDS ORDERED: fentaNYL* 50 MCG/ML 2 ML VIAL (100 MCG VIAL) IV PRN (16:14)
[2019-11-01] MEDS ORDERED: Ketorolac INJ* 30 MG/ML 1 ML VIAL IV PRN (16:14)
[2019-11-01] MEDS ORDERED: Naloxone* 0.4 MG/ML 1 ML VIAL IV PRN (16:14)
[2019-11-01] MEDS ORDERED: DiMENhydriNATE IV* 50 MG/ML VIAL IV PUSH PRN (16:14)
[2019-11-01] MEDS ORDERED: Ondansetron INJ* 2 MG/ML VIAL ONE (16:23)
[2019-11-01] MEDS ORDERED: Propofol* 10 MG/ML 20 ML BTL ONE (17:18)
[2019-11-01 19:30] VITALS: BP 127/78
--- NOTE | 2019-11-01 22:20 | OP ---
DATE OF OPERATION: 11/01/19 - [facility] DATE OF : 45 SURGEON: Agnus Wolf MD TOUR DRIVER: NASREEN Rodas, followed by NASREEN Cortez. An psych assistant was needed for the entirety of the procedure to aid in positioning of the arm and retraction. ANESTHESIOLOGIST: Dr. Bradshaw. ANESTHESIA: General. PRE-OP DIAGNOSES: 1. Left thumb endstage metacarpophalangeal joint arthritis. 2. 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 3. Left carpal tunnel syndrome. POST-OP DIAGNOSES: 1. Left thumb endstage metacarpophalangeal joint arthritis. 2. 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 3. Left carpal tunnel syndrome. OPERATIVE PROCEDURES: 1. Left thumb carpometacarpal arthroplasty with trapeziectomy. 2. Distally based split flexor carpi radialis tendon transfer for thumb suspension and tendon interposition. 3. Left thumb metacarpophalangeal joint arthrodesis with distal radius bone graft. 4. Left endoscopic carpal tunnel release. INDICATIONS: Ms. Espinosa has the aforementioned condition. She has very severe MCP joint arthritis and CMC joint arthritis as well. We talked about treatment options, risks, and benefits. She wants to proceed. ESTIMATED BLOOD LOSS: 2 mL. COMPLICATIONS: None. FINDINGS: See above and below. DESCRIPTION OF PROCEDURE: Ms. Espinosa was seen in preoperative holding area. The correct site, side and procedures were identified. We came back to the operating room. The arm was prepped and draped in the usual fashion and a time-out was performed. The arm was exsanguinated with an Esmarch and the tourniquet was inflated. I first made a 1-cm transverse incision just ulnar to the palmaris longus tendon. Dissection was carried down. The distal antebrachial fascia was spread transversely. A 2-prong skin hook was placed underneath the fascia. Carpal tunnel was dilated open and then the MicroAire endoscopic carpal tunnel system was introduced. When the blade was in the approximate location, the blade was elevated, the release was carried out from distal to proximal. Once I had released the entirety of the transverse carpal ligament, I released the distal antebrachial fascia proximally. At this point, everything was looking very good. I then made a 2 to 3 cm incision over the thumb base over the dorsum of the trapezium. Dissection was carried down longitudinally. The radial artery was mobilized and retracted out of the way. Subperiosteal and capsular flaps were raised to expose the trapezium. The trapezium was excised in its entirety. I then made a bone tunnel from the dorsoradial metacarpal base exiting out the volar ulnar articular surface near the insertion of the FCR tendon. The scaphotrapezoid joint was examined and that looked fine. I then irrigated out the wound. I then turned my attention to harvesting the tendon for the tendon transfer. I made three 1-cm transverse incisions, first 1 cm proximal to the wrist flexion crease over the FCR tendon. The other two were about 7 or 8 cm proximal to the last. I then released the FCR tendon sheath along the entirety of the tendon. I then brought the tendon up out of the wound distally and made a longitudinal split. A 26-gauge wire was passed into the tendon split. I then used a Jacquie clamp to retrieve the wire. The wire a was then pulled into the most proximal wound splitting the tendon as it went and then releasing half the tendon in the musculotendinous junction. The free end of the tendon was then sutured shuttled down into the metacarpal base wound with two 26-gauge wires. The tendon split was completed down to the base of the second metacarpal. It was then brought through the bone tunnel back around the intact limb of the tendon and a maximum tension was set. The tendon transfer was secured with three [id number] 3-0 Ethibond sutures, first sewing all three limbs of the tendon transfer together, the last 2 sewing intact limb to intact limb. The remainder of the tendon was rolled up as ball and docked as an interposition at the site of trapeziectomy. The wound was then irrigated out. The capsule was closed with 4-0 Vicryl suture. All the wounds were again irrigated and all the wounds were closed with 4-0 Prolene and 4-0 nylon suture. Lastly, I made a longitudinal incision over the dorsum of the MCP joint. Dissection was carried down, full-thickness flaps were raised off the extensor tendon. The extensor tendon was split longitudinally, the joint was opened up. The collateral ligaments were released. The end of the bone were prepared back to good cancellous bone with the rongeur. The were contoured so that there was good apposition when the 2 ends of the bone were brought together. I then made a 2 cm incision just proximal to Eileen's tubercle. Subperiosteal dissection exposed the dorsum of the distal radius. A smallest osteotome was used to make a dorsal corticotomy. The cancellous bone was harvested. That wound was then irrigated out and closed with 4-0 nylon suture. I then placed a guidewire for a standard Acutrak screw in standard position with the joint in 30 degrees of flexion and the coronal plane alignment neutral. I then drilled. I then placed my bone graft. I then placed a 28-mm standard Acutrak screw, I got excellent compression. Final fluoroscopic imaging showed good alignment and good apposition at the fusion site. The wound was irrigated out. The extensor tendon was repaired with 4-0 PDS sutures. Skin was closed with 4-0 nylon suture. All the wounds were infiltrated with 0.25% plain Marcaine. Wounds were dressed with Xeroform, 4 x 4s, sterile Webril, and then a well-padded thumb spica splint out to the tip of the thumb was applied. She was taken to the recovery room in stable condition. [id number]/[facility] #: [id number] KALANI
== END 2019-11-01 19:31 | disposition home or self-care (01) ==
LOC: OR 13:24
PROVIDERS: ATTEND Orthopaedic Surgery Hand Surgery
DX: M18.12 Unilateral primary osteoarthritis of first carpometacarpal joint, left hand (principal); M19.042 Primary osteoarthritis, left hand; G56.02 Carpal tunnel syndrome, left upper limb; I10 Essential (primary) hypertension; E78.5 Hyperlipidemia, unspecified; J45.909 Unspecified asthma, uncomplicated; K21.9 Gastro-esophageal reflux disease without esophagitis; Z85.850 Personal history of malignant neoplasm of thyroid; E03.8 Other specified hypothyroidism
CPT/HCPCS: 76000; 88304; 88311; C1713; C1769; C1776; J0690; J1100; J2405; J2704; J3010; J3490

== ENCOUNTER 2021-02-13 13:22 | Inpatient (IN) ==
[2021-02-13 15:51] LABS: ABS Eosinophils 0.3 10^3/ul (0-0.6); ABS Lymphocytes 2.7 10^3/ul (1.0-4.8); ABS Monocytes 0.7 10^3/ul (0-0.8); ABS Neutrophils 10.4 10^3/ul (1.5-7.7); Eosinophil % 2.2 %; Hematocrit 40 % (35-47); Hemoglobin 12.7 g/dL (12.0-16.0); Lymphocyte % 18.9 %; Mean Corpuscular HGB Conc 32 g/dL (31-36); Mean Corpuscular Hemoglobin 28 pg (27-31); Mean Corpuscular Volume 87 fL (80-97); Mean Platelet Volume 7.9 fL (7.4-10.4); Platelet Count 361 10^3/uL (150-450); Red Blood Count 4.55 10^6 /uL (3.70-4.87); Red Cell Distribution Width 17 % (10-15); White Blood Count 14.1 10^3/uL (3.5-10.8)
[2021-02-13] MEDS ORDERED: NS 0.9% 1000 ml BAG 1,000 ML IV ONE ×2 (16:11→17:46)
[2021-02-13 16:33] LABS: ALT 10 U/L (7-52); AST 13 U/L (13-39); Albumin/Globulin Ratio 1.4 (1-3); Alkaline Phosphatase 92 U/L (34-104); Anion Gap 8 mmol/L (2-11); Blood Urea Nitrogen 18 mg/dL (6-24); C Reactive Protein 7.61 mg/L (<8.01); CO2 Carbon Dioxide 27 mmol/L (22-32); Calcium 9.6 mg/dL (8.6-10.3); Chloride 104 mmol/L (101-111); EGFR African American 89.8 (>60); EGFR Non-African American 74.2 (>60); Globulin 2.8 g/dL (2-4); Glucose 109 mg/dL (70-100); Lipase < 10 U/L (11.0-82.0); Sodium 139 mmol/L (135-145); Total Protein 6.8 g/dL (6.4-8.9)
[2021-02-13] MEDS ORDERED: Iohexol 300 (CONTRAST) 10 ML SDV IV ONE (16:47)
[2021-02-13] MEDS ORDERED: Ondansetron 4 mg VIAL 2 MG/ML 2 ml VIAL IV PRN (18:55)
[2021-02-13] MEDS ORDERED: Labetalol IV 5 MG/ML 20 ml VIAL IV PUSH PRN (18:59)
[2021-02-13] MEDS ORDERED: Albuterol HFA INHALER 8 gm MDI INH PRN (20:50)
[2021-02-13] MEDS: NS 0.9% 1000 ml BAG 1,000 ML IV SCH (21:27)
[2021-02-13 22:35] LABS: Urine Appearance Cloudy; Urine Bilirubin Negative (Negative); Urine Blood 1+ (Negative); Urine Color Yellow; Urine Glucose Negative (Negative); Urine Ketones Negative (Negative); Urine Nitrite Positive (Negative); Urine Protein 1+(30 mg/dL) (Negative); Urine Specific Gravity 1.033 (1.002-1.030); Urine Urobilinogen Negative (Negative)
[2021-02-13 22:38] LABS: Urine Bacteria 3+ (Absent); Urine Red Blood Cell 3+(>10/hpf) (Absent); Urine Squamous Epithelial Cell Present (Absent); Urine White Blood Cell 2+(11-20/hpf) (Absent)
[2021-02-13] MEDS: Enoxaparin 40 MG/0.4 ML SYR SUBCUT SCH (23:15)
[2021-02-13] MEDS: Mometasone/Formoter 200/5 MDI INH SCH (23:55)
[2021-02-14 05:08] LABS: ABS Basophils 0.1 10^3/ul (0-0.2); ABS Eosinophils 0.4 10^3/ul (0-0.6); ABS Lymphocytes 4.1 10^3/ul (1.0-4.8); ABS Monocytes 0.6 10^3/ul (0-0.8); ABS Neutrophils 5.2 10^3/ul (1.5-7.7); Hematocrit 34 % (35-47); Hemoglobin 11.4 g/dL (12.0-16.0); Lymphocyte % 39.5 %; Mean Corpuscular HGB Conc 33 g/dL (31-36); Mean Corpuscular Hemoglobin 29 pg (27-31); Mean Corpuscular Volume 87 fL (80-97); Mean Platelet Volume 8.4 fL (7.4-10.4); Nucleated Red Blood Cells % 0.1; Platelet Count 325 10^3/uL (150-450); Red Blood Count 3.92 10^6 /uL (3.70-4.87); Red Cell Distribution Width 17 % (10-15); White Blood Count 10.3 10^3/uL (3.5-10.8)
[2021-02-14 05:25] LABS: Calcium 8.2 mg/dL (8.6-10.3); EGFR African American 97.1 (>60); EGFR Non-African American 80.3 (>60); Potassium 3.5 mmol/L (3.5-5.0)
[2021-02-14] MEDS: Levothyroxine 100 MCG/5 ML VIAL IV SCH (05:55)
[2021-02-14] MEDS: NS 0.9% 1000 ml BAG 1,000 ML IV SCH ×2 (05:55→20:15)
[2021-02-14] MEDS: Pantoprazole VIAL 40 MG VIAL IV SCH (08:14)
[2021-02-14] MEDS: SPIRIVA Respimat (tiotropium) 2.5 mcg/inh Inhaler INH SCH (08:28)
[2021-02-14] MEDS: Mometasone/Formoter 200/5 MDI INH SCH ×2 (08:28→21:10)
[2021-02-14] MEDS ORDERED: Zosyn per Pharmacy NOTE FOLLOW UP SCH (09:00)
[2021-02-14] MEDS: Enoxaparin 40 MG/0.4 ML SYR SUBCUT SCH (20:15)
[2021-02-15] MEDS: Levothyroxine 100 MCG/5 ML VIAL IV SCH (05:45)
[2021-02-15] MEDS: NS 0.9% 1000 ml BAG 1,000 ML IV SCH (05:45)
[2021-02-15] MEDS: SPIRIVA Respimat (tiotropium) 2.5 mcg/inh Inhaler INH SCH (07:45)
[2021-02-15] MEDS: Mometasone/Formoter 200/5 MDI INH SCH ×2 (07:46→21:36)
[2021-02-15] MEDS: Pantoprazole VIAL 40 MG VIAL IV SCH (09:16)
[2021-02-15] MEDS ORDERED: Oxymetazoline 0.05% NASAL SPR 15 ML BTL BOTH NARES ONE (09:55)
[2021-02-15] MEDS ORDERED: DULoxetine DR 60 mg CAP PO SCH (20:00)
[2021-02-15] MEDS: Enoxaparin 40 MG/0.4 ML SYR SUBCUT SCH (21:11)
[2021-02-16] MEDS: Levothyroxine 100 MCG/5 ML VIAL IV SCH (05:47)
[2021-02-16] MEDS: SPIRIVA Respimat (tiotropium) 2.5 mcg/inh Inhaler INH SCH (07:56)
[2021-02-16] MEDS: Mometasone/Formoter 200/5 MDI INH SCH (07:56)
[2021-02-16] MEDS: Pantoprazole VIAL 40 MG VIAL IV SCH (09:36)
[2021-02-16 11:53] VITALS: BP 144/67
== END 2021-02-16 11:40 | disposition home or self-care (01) | DRG 390 ==
LOC: ED 13:22 → MEDTELE 18:55
PROVIDERS: ADMIT Hospitalist; ATTEND Hospitalist